=== PATIENT | female | born 1970 | race American Indian/Alaskan Native ===

== ENCOUNTER 2018-08-27 14:03 | Emergency (ER) | payer BC, SELFPAY ==
[2018-08-27 14:15] VITALS: BP 133/59; PULSE 79; RESP 16; TEMP 36.7; O2SAT 100
--- NOTE | 2018-08-27 14:54 | ED_ITS ---
HPI - Extremity Problem <Fatou Moore PA-C - Last Filed: 08/27/18 16:05> General Chief complaint: Extremity Problem,Nontraumatic Stated complaint: BILATERAL KNEE PAIN Time Seen by Provider: 08/27/18 14:26 Source: patient Mode of arrival: ambulatory Limitations: no limitations History of Present Illness HPI Narrative: this 47-year-old female comes in due to history of chronic bilateral knee pain, worse on the left. She states this is been going on for 3 months or more, gradually worsening. She is on her feet all day for work and thinks that worsens her pain. She states she does not have any pain at rest, worsens after being on her feet, moving from sit to stand her having to bend her knees a lot. She states her heels are somewhat sore also but no pain in her ankles, no pain in other joints, no swelling noted, or other new symptoms such as fever. She states that sometime ago she was told she has arthritis but does not know in which joints. She has been using topical rubs and taking some [id number] ibuprofen off and on, but states she does not take regularly because it can cause stomach upset. She denies any specific trauma or injury aside from being on her feet a lot. She states that she was not able to get in with her PCP until middle of the month so was told to come here. Related Data Previous Rx's Medication Instructions Recorded azithromycin 1 gm PO QDAY 1 Days #0 pck 06/01/17 tramadol 50 mg PO Q6HP PRN #20 tab 06/01/17 meloxicam 15 mg PO DAILY #30 tab 08/27/18 Allergies Allergy/AdvReac Type Severity Reaction Status Date / Time Iodine and Iodide Containing Allergy Verified 08/27/18 14:15 Produc Review of Systems <Fatou Moore PA-C - Last Filed: 08/27/18 16:05> Review of Systems All systems reviewed & are unremarkable except as noted in HPI and below Exam <Fatou Moore PA-C - Last Filed: 08/27/18 16:05> Narrative Exam Narrative: GENERAL APPEARANCE: Patient sitting comfortably, in no distress. LUNGS: Clear to auscultation bilaterally. HEART: Rate and rhythm regular without murmur, normal S1 and S2, no S3 or S4. MUSCULOSKELETAL: Bilateral knees there is no effusion. She has mild bilateral joint line tenderness, a little bit more on the left. She also has tenderness medial to the patella on the left, none on the right. Full range of motion of both knees, bears full weight. No tenderness or effusion over the ankles or feet, full range of motion NEUROVASCULAR: Sensation over the lower extremities is grossly intact, feet are warm and pink with pulses intact Initial Vital Signs Initial Vital Signs: Vital Signs Temperature 98.0 F 08/27/18 14:15 Pulse Rate 79 08/27/18 14:15 Respiratory Rate 16 08/27/18 14:15 Blood Pressure 133/59 L 08/27/18 14:15 Pulse Oximetry 100 08/27/18 14:15 <Vonda Mendez DO - Last Filed: 08/27/18 16:16> Initial Vital Signs Initial Vital Signs: Vital Signs Temperature 98.0 F 08/27/18 14:15 Pulse Rate 79 08/27/18 14:15 Respiratory Rate 16 08/27/18 14:15 Blood Pressure 133/59 L 08/27/18 14:15 Pulse Oximetry 100 08/27/18 14:15 Course <Fatou Moore PA-C - Last Filed: 08/27/18 16:05> Vital Signs - 8 hr 08/27/18 14:15 Temperature 98.0 F Pulse Rate 79 Respiratory Rate 16 Blood Pressure 133/59 L Pulse Oximetry 100 <Vonda Mendez DO - Last Filed: 08/27/18 16:16> Vital Signs - 8 hr 08/27/18 14:15 Temperature 98.0 F Pulse Rate 79 Respiratory Rate 16 Blood Pressure 133/59 L Pulse Oximetry 100 Discharge Plan Departure Patient Disposition: Home Clinical Impression: Bilateral chronic knee pain Discharge Date/Time: 08/27/18 15:03 Interventions: ED Discharge Assessment Last Done: 08/27/18 15:00 Instructions: DI for Knee Pain Activity Restrictions/Additional Instructions: Please call your primary care office and let them know that you were seen in the emergency room so that you can try to arrange appointment prior to the planned appointment you have in 2 weeks. please try the once daily anti- inflammatory meloxicam /pain reliever that I have prescribed for you to see if this helps you with less stomach upset than ibuprofen. I have prescribed a lower dose and you can increase this to 2 tablets if needed. Please add over- the-counter long-acting (8 hr) Tylenol, 650 mg per tablet if you need to. You can also where topical patches such as lidocaine all day while you are at work. It would also be helpful to try icing your knees on your work breaks and after work. Please talk with your new PCP about whether you need x-rays and whether a physical therapy referral may be helpful since you are on your feet all day for work Prescriptions: New meloxicam 7.5 mg tablet 15 mg PO DAILY Qty: 30 RF: 0 No Action tramadol 50 MG tablet 50 mg PO Q6HP PRNQty: 20 RF: 0 azithromycin 1 GM packet 1 gm PO QDAY 1 Days Qty: 0 RF: 0 <Vonda Mendez DO - Last Filed: 08/27/18 16:16> Cosign ED Attending Cosignature Attestation: I was immediately available in the department for consultation. This documentation has been reviewed and I agree with assessment and plan. Supervised by Vonda Mendez DO
== END 2018-08-27 15:03 | disposition home or self-care (01) ==
PROVIDERS: Emergency Provider Internal Medicine
DX: M25.562 Pain in left knee (principal); M25.561 Pain in right knee; G89.29 Other chronic pain
CPT/HCPCS: 99282

== ENCOUNTER 2018-12-09 13:00 | Outpatient (RCR) | payer BC, SELFPAY ==
--- NOTE | 2018-10-07 15:50 | PT.OIE ---
Current Diagnoses Pain in right knee (10/07/18) Pain in left knee (10/07/18) Past Medical History (Last Updated 08/27/18 @ 16:02 by Fatou Moore PA-C) Chronic knee pain (Chronic) Ovarian cyst (Resolved) Past Surgical History (Last Updated 08/27/18 @ 16:02 by Fatou Moore PA-C) History of removal of ovarian cyst (Resolved) Provider Visit Care Team Role Provider Type Kalee Wright MD Attending Provider Non-Staff Primary Care Provider Specialty: Medical Address: [address] [place] [address], [phone] Email: Physical Therapy Initial Evaluation PT-OP-A Visit Information Start: 10/07/18 14:43 Freq: Status: Active Protocol: Document 10/07/18 09:00 AMB (Rec: 10/07/18 15:27 AMB [email or web address]) Out-Patient Physical Therapy Visit Information Visit Information Visit Type Initial Evaluation Visit Start Time 09:00 Visit Stop Time 09:45 Total Visit Minutes 45 Visit Number 1 PT-OP-B Current Condition Start: 10/07/18 14:43 Freq: Status: Active Protocol: Document 10/07/18 09:00 AMB (Rec: 10/07/18 15:27 AMB [email or web address]) Current Condition History of Current Condition Onset Date 6 months Current Complaints L>R knee pain History of Current Condition The patient reports knee pain that has been increasing since walking all day for work at [employer]. It is medial, posterior, and superior to the patella. She reports clicking, but not locking. Prior Functional Status Baseline Function- ADL's Independent Baseline Function- Mobility Independent Baseline Function- Other Pt was previously jogging outside and went to the gym when she lived in [place] a year ago, has not returned to that activity since moving. 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 PT-OP-C Subjective Start: 10/07/18 14:43 Freq: Status: Active Protocol: Document 10/07/18 09:00 AMB (Rec: 10/07/18 15:27 AMB [email or web address]) Patient Questionnaires Lower Extremity Functional Scale LEFS Score 52 LEFS Impairment 20 to 39% Impaired (Score 48- 62) OP-PT Pain Assessment Pain Assessment Grid Paper Pain Assessment Grid Completed Yes PT-OP-J Posture/Palpation/Skin Start: 10/07/18 14:43 Freq: Status: Active Protocol: Document 10/07/18 09:00 AMB (Rec: 10/07/18 15:37 AMB [email or web address]) Posture Evaluation Comments Posture Comments High arches and hyper lordosis bilaterally Palpation Assessment Location One Palpation Location Knees Palpation Findings Tenderness Palpation Details Tenderness at joint line medially and laterally, tenderness at IT band. No pain with patellar mobilization PT-OP-K Range of Motion Start: 10/07/18 14:43 Freq: Status: Active Protocol: Document 10/07/18 09:00 AMB (Rec: 10/07/18 15:37 AMB [email or web address]) Knee Goniometric Range of Motion Knee Measured in Degrees Right Knee ROM WFL Yes Left Knee ROM WFL Yes PT-OP-L Special Tests Start: 10/07/18 14:43 Freq: Status: Active Protocol: Document 10/07/18 09:00 AMB (Rec: 10/07/18 15:37 AMB [email or web address]) Special Tests Knee Special Tests Beto Test Test Results negative bilat PT-OP-M Strength Start: 10/07/18 14:43 Freq: Status: Active Protocol: Document 10/07/18 09:00 AMB (Rec: 10/07/18 15:37 AMB [email or web address]) Hip Strength Hip Manual Muscle Testing Right Flexion (L2) 4+ Good+ Extension (S1) 4+ Good+ Abduction 4+ Good+ Adduction 4+ Good+ Left Flexion (L2) 4 Good Extension (S1) 4 Good Abduction 4+ Good+ Adduction 4+ Good+ Knee Strength Knee Manual Muscle Testing Right Flexion (S2) 4+ Good+ Extension (L3) 4+ Good+ Left Flexion (S2) 4 Good Extension (L3) 4 Good PT-OP-Q Treatments Start: 10/07/18 14:43 Freq: Status: Active Protocol: Document 10/07/18 09:00 AMB (Rec: 10/07/18 15:50 AMB [email or web address]) Therapeutic Exercises Supine Exercises 1 Supine Exercise Name hamstring IT band stretch Reps/Minutes 30x2 Sidelying Exercises 1 Sidelying Exercise Name hip abd AROM Reps/Minutes 2x10 Standing Exercises 2 Standing Exercise Name squat Reps/Minutes 1x10 1 Standing Exercise Name wall squat Reps/Minutes 10x3 PT-OP-T Assessment and Plan Start: 10/07/18 14:43 Freq: Status: Active Protocol: Document 10/07/18 09:00 AMB (Rec: 10/07/18 15:50 AMB [email or web address]) Physical Therapy Assessment Rehab Potential Rehabilitation Potential Good Evaluation Complexity Number of Personal Factors/Comorbidities 1-2 Number of Body Systems Impaired 4 or More Clinical Presentation at Evaluation Evolving Impairments Impairments Functional Mobility Pain Posture ROM Soft Tissue Mobility Strength Goals Two Impairment Gait Short Term Goal (STG) Akiko will walk and stand at work for 4 hours without knee pain. STG Duration 4 weeks Automatic Machine Attendant Goal (LTG) Akiko will ascend and descend 2 flights of stairs without knee pain. LTG Duration 8 weeks One Impairment Strength Short Term Goal (STG) Akiko will improve her knee and hip strength to 4+/5 in all planes. STG Duration 4 weeks Automatic Machine Attendant Goal (LTG) Carmen will improve her bilateral lower extremity strength so that she can perform a full squat without an increase in knee pain. LTG Duration 8 weeks Assessment Summary Assessment The patient presents to PT with bilateral knee pain worse on the left. She presents with poor hip strength, tightness in her hamstrings and lateral hip musculature and non-supportive shoes for her high arches. She had signs and symptoms associated with patellofemoral syndrome. She will benefit from physical therapy to help her stretch and strengthen appropriately to help her return to her previously active lifestyle that included running. Physical Therapy Plan Frequency and Duration Frequency of Treatment 2x/Week Duration of Treatment 8 weeks Plan of Care Start Date 10/07/18 Plan of Care End Date 12/02/18 Therapeutic Interventions Therapeutic Interventions Aquatic Therapy Gait Training Home Exercise Program Joint Mobilizations Manual Therapy Neuromuscular Re-education Self-Care/Home Management Soft Tissue Mobilization Taping Therapeutic Activities Therapeutic Exercises Modalities Cold Pack/Ice Massage Electric Stimulation Hot Packs Ultrasound Next Visit Focus/Plan Next Note Type Treatment Note Next Visit Plan Hip abduction and VMO strengthening, IT band stretching. Progress squat form. Taping as needed.
--- NOTE | 2018-10-07 15:50 | PT.OPPOC ---
Current Diagnoses Pain in right knee (10/07/18) Pain in left knee (10/07/18) Provider Visit Care Team Role Provider Type Kalee Wright MD Attending Provider Non-Staff Primary Care Provider Specialty: Medical Address: [address] [place] [address], [phone] Email: Plan Of Care PT-OP-T Assessment and Plan Start: 10/07/18 14:43 Freq: Status: Active Protocol: Document 10/07/18 09:00 AMB (Rec: 10/07/18 15:50 AMB [email or web address]) Physical Therapy Assessment Rehab Potential Rehabilitation Potential Good Evaluation Complexity Number of Personal Factors/Comorbidities 1-2 Number of Body Systems Impaired 4 or More Clinical Presentation at Evaluation Evolving Impairments Impairments Functional Mobility Pain Posture ROM Soft Tissue Mobility Strength Goals Two Impairment Gait Short Term Goal (STG) Akiko will walk and stand at work for 4 hours without knee pain. STG Duration 4 weeks Bit Sharpener Operator Goal (LTG) Akiko will ascend and descend 2 flights of stairs without knee pain. LTG Duration 8 weeks One Impairment Strength Short Term Goal (STG) Akiko will improve her knee and hip strength to 4+/5 in all planes. STG Duration 4 weeks Longterm Goal (LTG) Carmen will improve her bilateral lower extremity strength so that she can perform a full squat without an increase in knee pain. LTG Duration 8 weeks Assessment Summary Assessment The patient presents to PT with bilateral knee pain worse on the left. She presents with poor hip strength, tightness in her hamstrings and lateral hip musculature and non-supportive shoes for her high arches. She had signs and symptoms associated with patellofemoral syndrome. She will benefit from physical therapy to help her stretch and strengthen appropriately to help her return to her previously active lifestyle that included running. Physical Therapy Plan Frequency and Duration Frequency of Treatment 2x/Week Duration of Treatment 8 weeks Plan of Care Start Date 10/07/18 Plan of Care End Date 12/02/18 Therapeutic Interventions Therapeutic Interventions Aquatic Therapy Gait Training Home Exercise Program Joint Mobilizations Manual Therapy Neuromuscular Re-education Self-Care/Home Management Soft Tissue Mobilization Taping Therapeutic Activities Therapeutic Exercises Modalities Cold Pack/Ice Massage Electric Stimulation Hot Packs Ultrasound Next Visit Focus/Plan Next Note Type Treatment Note Next Visit Plan Hip abduction and VMO strengthening, IT band stretching. Progress squat form. Taping as needed. Plan of Care Dates Plan of Care Start Date 10/07/18 Plan of Care End Date 12/02/18 Please Sign and Return: I have reviewed this Plan of Care and certify that the skilled therapy services above are required to meet the patient?s needs. Physician Signature Date Printed Name and Credentials Clinical Instructor Signature Printed Name and Credentials
--- NOTE | 2018-10-19 09:59 | PT.OTN ---
Current Diagnoses Pain in right knee (10/19/18) Pain in left knee (10/19/18) Physical Therapy Treatment Note PT-OP-A Visit Information Start: 10/07/18 14:43 Freq: Status: Active Protocol: Document 10/19/18 09:00 AMB (Rec: 10/19/18 09:09 AMB [id number]) Out-Patient Physical Therapy Visit Information Visit Information Visit Type Treatment Note Visit Start Time 09:00 Visit Stop Time 09:45 Total Visit Minutes 45 Visit Number 2 PT-OP-B Current Condition Start: 10/07/18 14:43 Freq: Status: Active Protocol: Document 10/07/18 09:00 AMB (Rec: 10/07/18 15:27 AMB [email or web address]) Current Condition History of Current Condition Onset Date 6 months Current Complaints L>R knee pain History of Current Condition The patient reports knee pain that has been increasing since walking all day for work at [employer]. It is medial, posterior, and superior to the patella. She reports clicking, but not locking. Prior Functional Status Baseline Function- ADL's Independent Baseline Function- Mobility Independent Baseline Function- Other Pt was previously jogging outside and went to the gym when she lived in [place] a year ago, has not returned to that activity since moving. 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 PT-OP-C Subjective Start: 10/07/18 14:43 Freq: Status: Active Protocol: Document 10/19/18 09:00 AMB (Rec: 10/19/18 09:09 AMB [id number]) OP-PT Subjective Patient Comments Patient Comments The patient notes pain behind the knees over the last week. PT-OP-J Posture/Palpation/Skin Start: 10/07/18 14:43 Freq: Status: Active Protocol: Document 10/07/18 09:00 AMB (Rec: 10/07/18 15:37 AMB [email or web address]) Posture Evaluation Comments Posture Comments High arches and hyper lordosis bilaterally Palpation Assessment Location One Palpation Location Knees Palpation Findings Tenderness Palpation Details Tenderness at joint line medially and laterally, tenderness at IT band. No pain with patellar mobilization PT-OP-K Range of Motion Start: 10/07/18 14:43 Freq: Status: Active Protocol: Document 10/07/18 09:00 AMB (Rec: 10/07/18 15:37 AMB [email or web address]) Knee Goniometric Range of Motion Knee Measured in Degrees Right Knee ROM WFL Yes Left Knee ROM WFL Yes PT-OP-L Special Tests Start: 10/07/18 14:43 Freq: Status: Active Protocol: Document 10/07/18 09:00 AMB (Rec: 10/07/18 15:37 AMB [email or web address]) Special Tests Knee Special Tests Beto Test Test Results negative bilat PT-OP-M Strength Start: 10/07/18 14:43 Freq: Status: Active Protocol: Document 10/07/18 09:00 AMB (Rec: 10/07/18 15:37 AMB [email or web address]) Hip Strength Hip Manual Muscle Testing Right Flexion (L2) 4+ Good+ Extension (S1) 4+ Good+ Abduction 4+ Good+ Adduction 4+ Good+ Left Flexion (L2) 4 Good Extension (S1) 4 Good Abduction 4+ Good+ Adduction 4+ Good+ Knee Strength Knee Manual Muscle Testing Right Flexion (S2) 4+ Good+ Extension (L3) 4+ Good+ Left Flexion (S2) 4 Good Extension (L3) 4 Good PT-OP-Q Treatments Start: 10/07/18 14:43 Freq: Status: Active Protocol: Document 10/19/18 09:00 AMB (Rec: 10/19/18 09:58 AMB [email or web address]) Cardio Equipment Bicycle (Upright) Duration (Minutes) 7 Resistance 4 Seat Position 2 Gym Equipment Shuttle Recovery Bilateral Squats Details ball between knees Resistance 37 Shuttle Recovery Platform Stable Reps/Time 4 min Therapeutic Exercises Supine Exercises 2 Supine Exercise Name SLR Reps/Minutes 2x10 1 Supine Exercise Name hamstring IT band stretch Reps/Minutes 30x2 Sidelying Exercises 1 Sidelying Exercise Name hip abd AROM Reps/Minutes 2x10 Standing Exercises 4 Standing Exercise Name hamstring stretch Reps/Minutes 30x2 Comments on stair 3 Standing Exercise Name calf stretch Reps/Minutes 30x2 Comments GERARDO Manual Therapy Treatment Soft Tissue Mobilization 1 Body Location posterior knee Mobilization Type Myofascial Release Strumming Intensity/Depth Moderate Joint Mobilizations 1 Joint patellofemoral Direction all planes Grade III Body Position Supine PT-OP-R Modalities Start: 10/07/18 14:43 Freq: Status: Active Protocol: Document 10/19/18 09:00 AMB (Rec: 10/19/18 09:58 AMB [email or web address]) Electric Stimulation Electric Stimulation Pre-Modulated Body Location Bilateral knees Duration (Minutes) 10 PT-OP-T Assessment and Plan Start: 10/07/18 14:43 Freq: Status: Active Protocol: Document 10/19/18 09:00 AMB (Rec: 10/19/18 09:58 AMB [email or web address]) Physical Therapy Assessment Assessment Summary Assessment Educated on the difference between muscles soreness and joint pain. Encouraged hip abd and VMO strengthening. Physical Therapy Plan Next Visit Focus/Plan Next Note Type Treatment Note Next Visit Plan Hip abduction and VMO strengthening, IT band stretching. Progress squat form. Taping as needed.
--- NOTE | 2018-10-21 09:47 | PT.OTN ---
Current Diagnoses Pain in right knee (10/21/18) Pain in left knee (10/21/18) Physical Therapy Treatment Note PT-OP-A Visit Information Start: 10/07/18 14:43 Freq: Status: Active Protocol: Document 10/21/18 09:00 AMB (Rec: 10/21/18 09:12 AMB [id number]) Out-Patient Physical Therapy Visit Information Visit Information Visit Type Treatment Note Visit Start Time 09:00 Visit Stop Time 09:45 Total Visit Minutes 45 Visit Number 3 PT-OP-B Current Condition Start: 10/07/18 14:43 Freq: Status: Active Protocol: Document 10/07/18 09:00 AMB (Rec: 10/07/18 15:27 AMB [email or web address]) Current Condition History of Current Condition Onset Date 6 months Current Complaints L>R knee pain History of Current Condition The patient reports knee pain that has been increasing since walking all day for work at [employer]. It is medial, posterior, and superior to the patella. She reports clicking, but not locking. Prior Functional Status Baseline Function- ADL's Independent Baseline Function- Mobility Independent Baseline Function- Other Pt was previously jogging outside and went to the gym when she lived in [place] a year ago, has not returned to that activity since moving. 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 PT-OP-C Subjective Start: 10/07/18 14:43 Freq: Status: Active Protocol: Document 10/21/18 09:00 AMB (Rec: 10/21/18 09:12 AMB [id number]) OP-PT Subjective Patient Comments Patient Comments The patient reports soreness above knee cap, worst on the L . Soreness after last visit in her hips. PT-OP-J Posture/Palpation/Skin Start: 10/07/18 14:43 Freq: Status: Active Protocol: Document 10/07/18 09:00 AMB (Rec: 10/07/18 15:37 AMB [email or web address]) Posture Evaluation Comments Posture Comments High arches and hyper lordosis bilaterally Palpation Assessment Location One Palpation Location Knees Palpation Findings Tenderness Palpation Details Tenderness at joint line medially and laterally, tenderness at IT band. No pain with patellar mobilization PT-OP-K Range of Motion Start: 10/07/18 14:43 Freq: Status: Active Protocol: Document 10/07/18 09:00 AMB (Rec: 10/07/18 15:37 AMB [email or web address]) Knee Goniometric Range of Motion Knee Measured in Degrees Right Knee ROM WFL Yes Left Knee ROM WFL Yes PT-OP-L Special Tests Start: 10/07/18 14:43 Freq: Status: Active Protocol: Document 10/07/18 09:00 AMB (Rec: 10/07/18 15:37 AMB [email or web address]) Special Tests Knee Special Tests Beto Test Test Results negative bilat PT-OP-M Strength Start: 10/07/18 14:43 Freq: Status: Active Protocol: Document 10/07/18 09:00 AMB (Rec: 10/07/18 15:37 AMB [email or web address]) Hip Strength Hip Manual Muscle Testing Right Flexion (L2) 4+ Good+ Extension (S1) 4+ Good+ Abduction 4+ Good+ Adduction 4+ Good+ Left Flexion (L2) 4 Good Extension (S1) 4 Good Abduction 4+ Good+ Adduction 4+ Good+ Knee Strength Knee Manual Muscle Testing Right Flexion (S2) 4+ Good+ Extension (L3) 4+ Good+ Left Flexion (S2) 4 Good Extension (L3) 4 Good PT-OP-Q Treatments Start: 10/07/18 14:43 Freq: Status: Active Protocol: Document 10/21/18 09:00 AMB (Rec: 10/21/18 09:44 AMB [id number]) Cardio Equipment Bicycle (Upright) Duration (Minutes) 7 Resistance 4 Seat Position 2 Therapeutic Exercises Supine Exercises 2 Supine Exercise Name SLR Reps/Minutes 2x10 1 Supine Exercise Name hamstring IT band stretch Reps/Minutes 30x2 Sidelying Exercises 1 Sidelying Exercise Name hip abd AROM Reps/Minutes 2x10 Standing Exercises 4 Standing Exercise Name hamstring stretch/ IT band stretch Reps/Minutes 30x2 Comments on stair 3 Standing Exercise Name calf stretch Reps/Minutes 30x2 Comments GERARDO 1 Standing Exercise Name wall squat Reps/Minutes 10x3 Manual Therapy Treatment Soft Tissue Mobilization 2 Body Location IT band Mobilization Type Rolling Comments bilat PT-OP-R Modalities Start: 10/07/18 14:43 Freq: Status: Active Protocol: Document 10/21/18 09:00 AMB (Rec: 10/21/18 09:45 AMB [id number]) Electric Stimulation Electric Stimulation Pre-Modulated Body Location Bilateral knees Duration (Minutes) 10 Comments with ice pack PT-OP-T Assessment and Plan Start: 10/07/18 14:43 Freq: Status: Active Protocol: Document 10/21/18 09:00 AMB (Rec: 10/21/18 09:46 AMB [id number]) Physical Therapy Assessment Assessment Summary Assessment Pt with soreness after last visit, and some anxiety over L superior patellar pain. Encouraged pt to continue hip strengthening icing as needed. Physical Therapy Plan Next Visit Focus/Plan Next Note Type Treatment Note Next Visit Plan Hip abduction and VMO strengthening, IT band stretching. Progress squat form. Taping as needed.
--- NOTE | 2018-10-25 12:56 | PT.OTN ---
Current Diagnoses Pain in right knee (10/25/18) Pain in left knee (10/25/18) Physical Therapy Treatment Note PT-OP-A Visit Information Start: 10/07/18 14:43 Freq: Status: Active Protocol: Document 10/25/18 09:00 AMB (Rec: 10/25/18 09:08 AMB [id number]) Out-Patient Physical Therapy Visit Information Visit Information Visit Type Treatment Note Visit Start Time 09:00 Visit Stop Time 09:45 Total Visit Minutes 45 Visit Number 4 PT-OP-B Current Condition Start: 10/07/18 14:43 Freq: Status: Active Protocol: Document 10/07/18 09:00 AMB (Rec: 10/07/18 15:27 AMB [email or web address]) Current Condition History of Current Condition Onset Date 6 months Current Complaints L>R knee pain History of Current Condition The patient reports knee pain that has been increasing since walking all day for work at [employer]. It is medial, posterior, and superior to the patella. She reports clicking, but not locking. Prior Functional Status Baseline Function- ADL's Independent Baseline Function- Mobility Independent Baseline Function- Other Pt was previously jogging outside and went to the gym when she lived in [place] a year ago, has not returned to that activity since moving. 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 PT-OP-C Subjective Start: 10/07/18 14:43 Freq: Status: Active Protocol: Document 10/25/18 09:00 AMB (Rec: 10/25/18 09:08 AMB [id number]) OP-PT Subjective Patient Comments Patient Comments Pt reports R knee swelling over the weekend that was very painful, mostly anterior pain . PT-OP-J Posture/Palpation/Skin Start: 10/07/18 14:43 Freq: Status: Active Protocol: Document 10/07/18 09:00 AMB (Rec: 10/07/18 15:37 AMB [email or web address]) Posture Evaluation Comments Posture Comments High arches and hyper lordosis bilaterally Palpation Assessment Location One Palpation Location Knees Palpation Findings Tenderness Palpation Details Tenderness at joint line medially and laterally, tenderness at IT band. No pain with patellar mobilization PT-OP-K Range of Motion Start: 10/07/18 14:43 Freq: Status: Active Protocol: Document 10/07/18 09:00 AMB (Rec: 10/07/18 15:37 AMB [email or web address]) Knee Goniometric Range of Motion Knee Measured in Degrees Right Knee ROM WFL Yes Left Knee ROM WFL Yes PT-OP-L Special Tests Start: 10/07/18 14:43 Freq: Status: Active Protocol: Document 10/07/18 09:00 AMB (Rec: 10/07/18 15:37 AMB [email or web address]) Special Tests Knee Special Tests Beto Test Test Results negative bilat PT-OP-M Strength Start: 10/07/18 14:43 Freq: Status: Active Protocol: Document 10/07/18 09:00 AMB (Rec: 10/07/18 15:37 AMB [email or web address]) Hip Strength Hip Manual Muscle Testing Right Flexion (L2) 4+ Good+ Extension (S1) 4+ Good+ Abduction 4+ Good+ Adduction 4+ Good+ Left Flexion (L2) 4 Good Extension (S1) 4 Good Abduction 4+ Good+ Adduction 4+ Good+ Knee Strength Knee Manual Muscle Testing Right Flexion (S2) 4+ Good+ Extension (L3) 4+ Good+ Left Flexion (S2) 4 Good Extension (L3) 4 Good PT-OP-Q Treatments Start: 10/07/18 14:43 Freq: Status: Active Protocol: Document 10/25/18 09:00 AMB (Rec: 10/25/18 10:16 AMB [id number]) Cardio Equipment Recumbent Bicycle Duration (Minutes) 6 Resistance 4 Seat Position 4 Therapeutic Exercises Supine Exercises 3 Supine Exercise Name hip flexor stretch Reps/Minutes 30x2 2 Supine Exercise Name SLR Reps/Minutes 2x10 1 Supine Exercise Name hamstring IT band stretch Reps/Minutes 30x2 Manual Therapy Treatment Soft Tissue Mobilization 2 Body Location IT band Mobilization Type Rolling Comments bilat Joint Mobilizations 1 Joint patellofemoral Direction all planes Grade III Body Position Supine Taping 1 Body Location bilat knees Type of Tape Kinesio Tape Comments 3 Ys PT-OP-R Modalities Start: 10/07/18 14:43 Freq: Status: Active Protocol: Document 10/25/18 09:00 AMB (Rec: 10/25/18 12:49 AMB [email or web address]) Hot Pack/Cold Pack Treatment Cold Pack Location B knees/hips Patient Position Hooklying Treatment Duration (minutes) 10 PT-OP-T Assessment and Plan Start: 10/07/18 14:43 Freq: Status: Active Protocol: Document 10/25/18 09:00 AMB (Rec: 10/25/18 12:49 [facility] [email or web address]) Physical Therapy Assessment Assessment Summary Assessment Pt with more R sided sx. Presents with anxiety regarding pain, tried to reassure that bodies can heal, and that since her hips and knees are very weak, strengthening should improve her pain significantly. Physical Therapy Plan Next Visit Focus/Plan Next Note Type Treatment Note Next Visit Plan Hip abduction and VMO strengthening, IT band stretching. Progress squat form. Taping as needed.
--- NOTE | 2018-10-28 10:47 | PT.OTN ---
Current Diagnoses Pain in right knee (10/28/18) Pain in left knee (10/28/18) Physical Therapy Treatment Note PT-OP-A Visit Information Start: 10/07/18 14:43 Freq: Status: Active Protocol: Document 10/28/18 09:00 AMB (Rec: 10/28/18 09:37 AMB [id number]) Out-Patient Physical Therapy Visit Information Visit Information Visit Type Treatment Note Visit Start Time 09:00 Visit Stop Time 09:45 Total Visit Minutes 45 Visit Number 5 PT-OP-B Current Condition Start: 10/07/18 14:43 Freq: Status: Active Protocol: Document 10/07/18 09:00 AMB (Rec: 10/07/18 15:27 AMB [email or web address]) Current Condition History of Current Condition Onset Date 6 months Current Complaints L>R knee pain History of Current Condition The patient reports knee pain that has been increasing since walking all day for work at [employer] [facility] [facility] [employer]. It is medial, posterior, and superior to the patella. She reports clicking, but not locking. Prior Functional Status Baseline Function- ADL's Independent Baseline Function- Mobility Independent Baseline Function- Other Pt was previously jogging outside and went to the gym when she lived in [place] a year ago, has not returned to that activity since moving. 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 PT-OP-C Subjective Start: 10/07/18 14:43 Freq: Status: Active Protocol: Document 10/28/18 09:00 AMB (Rec: 10/28/18 10:47 AMB [email or web address]) OP-PT Subjective Patient Comments Patient Comments Pt notes her R knee pain is better, but her L knee pain continues. Mostly just superior to her patella. She continues to notice hip soreness with her exercises. PT-OP-J Posture/Palpation/Skin Start: 10/07/18 14:43 Freq: Status: Active Protocol: Document 10/07/18 09:00 AMB (Rec: 10/07/18 15:37 AMB [email or web address]) Posture Evaluation Comments Posture Comments High arches and hyper lordosis bilaterally Palpation Assessment Location One Palpation Location Knees Palpation Findings Tenderness Palpation Details Tenderness at joint line medially and laterally, tenderness at IT band. No pain with patellar mobilization PT-OP-K Range of Motion Start: 10/07/18 14:43 Freq: Status: Active Protocol: Document 10/07/18 09:00 AMB (Rec: 10/07/18 15:37 AMB [email or web address]) Knee Goniometric Range of Motion Knee Measured in Degrees Right Knee ROM WFL Yes Left Knee ROM WFL Yes PT-OP-L Special Tests Start: 10/07/18 14:43 Freq: Status: Active Protocol: Document 10/07/18 09:00 AMB (Rec: 10/07/18 15:37 AMB [email or web address]) Special Tests Knee Special Tests Beto Test Test Results negative bilat PT-OP-M Strength Start: 10/07/18 14:43 Freq: Status: Active Protocol: Document 10/07/18 09:00 AMB (Rec: 10/07/18 15:37 AMB [email or web address]) Hip Strength Hip Manual Muscle Testing Right Flexion (L2) 4+ Good+ Extension (S1) 4+ Good+ Abduction 4+ Good+ Adduction 4+ Good+ Left Flexion (L2) 4 Good Extension (S1) 4 Good Abduction 4+ Good+ Adduction 4+ Good+ Knee Strength Knee Manual Muscle Testing Right Flexion (S2) 4+ Good+ Extension (L3) 4+ Good+ Left Flexion (S2) 4 Good Extension (L3) 4 Good PT-OP-Q Treatments Start: 10/07/18 14:43 Freq: Status: Active Protocol: Document 10/28/18 09:00 AMB (Rec: 10/28/18 10:47 AMB [email or web address]) Cardio Equipment Bicycle (Upright) Duration (Minutes) 5 Resistance 4 Seat Position 2 Gym Equipment Shuttle Recovery Bilateral Squats Details ball between knees Resistance 50 Shuttle Recovery Platform Stable Reps/Time 4 min Therapeutic Exercises Supine Exercises 2 Supine Exercise Name SLR Reps/Minutes 2x10 1 Supine Exercise Name hamstring IT band stretch Reps/Minutes 30x2 Sidelying Exercises 1 Sidelying Exercise Name hip abd AROM Reps/Minutes 2x10 Standing Exercises 4 Standing Exercise Name hamstring stretch/ IT band stretch Reps/Minutes 30x2 Comments on stair Manual Therapy Treatment Soft Tissue Mobilization 2 Body Location IT band Mobilization Type Rolling Comments bilat Joint Mobilizations 1 Joint patellofemoral Direction all planes Grade III Body Position Supine Taping 1 Body Location L knee Type of Tape Kinesio Tape Comments 3 Ys PT-OP-R Modalities Start: 10/07/18 14:43 Freq: Status: Active Protocol: Document 10/25/18 09:00 AMB (Rec: 10/25/18 12:49 AMB [email or web address]) Hot Pack/Cold Pack Treatment Cold Pack Location B knees/hips Patient Position Hooklying Treatment Duration (minutes) 10 PT-OP-T Assessment and Plan Start: 10/07/18 14:43 Freq: Status: Active Protocol: Document 10/28/18 09:00 AMB (Rec: 10/28/18 10:47 AMB [email or web address]) Physical Therapy Assessment Assessment Summary Assessment Pt continues to note L>R knee pain, but tolerance to exercise continues to be poor. Physical Therapy Plan Next Visit Focus/Plan Next Note Type Treatment Note Next Visit Plan Hip abduction and VMO strengthening, IT band stretching. Progress squat form. Taping as needed.
--- NOTE | 2018-11-04 11:57 | PT.OTN ---
Current Diagnoses Pain in right knee (11/04/18) Pain in left knee (11/04/18) Physical Therapy Treatment Note PT-OP-A Visit Information Start: 10/07/18 14:43 Freq: Status: Active Protocol: Document 11/04/18 09:00 AMB (Rec: 11/04/18 09:17 AMB [id number]) Out-Patient Physical Therapy Visit Information Visit Information Visit Type Treatment Note Visit Start Time 09:00 Visit Stop Time 09:45 Total Visit Minutes 45 Visit Number 6 PT-OP-B Current Condition Start: 10/07/18 14:43 Freq: Status: Active Protocol: Document 10/07/18 09:00 AMB (Rec: 10/07/18 15:27 AMB [email or web address]) Current Condition History of Current Condition Onset Date 6 months Current Complaints L>R knee pain History of Current Condition The patient reports knee pain that has been increasing since walking all day for work at [employer]. It is medial, posterior, and superior to the patella. She reports clicking, but not locking. Prior Functional Status Baseline Function- ADL's Independent Baseline Function- Mobility Independent Baseline Function- Other Pt was previously jogging outside and went to the gym when she lived in [place] a year ago, has not returned to that activity since moving. 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 PT-OP-C Subjective Start: 10/07/18 14:43 Freq: Status: Active Protocol: Document 11/04/18 09:00 AMB (Rec: 11/04/18 09:17 AMB [id number]) OP-PT Subjective Patient Comments Patient Comments L knee pain continues when up on feet. PT-OP-J Posture/Palpation/Skin Start: 10/07/18 14:43 Freq: Status: Active Protocol: Document 10/07/18 09:00 AMB (Rec: 10/07/18 15:37 AMB [email or web address]) Posture Evaluation Comments Posture Comments High arches and hyper lordosis bilaterally Palpation Assessment Location One Palpation Location Knees Palpation Findings Tenderness Palpation Details Tenderness at joint line medially and laterally, tenderness at IT band. No pain with patellar mobilization PT-OP-K Range of Motion Start: 10/07/18 14:43 Freq: Status: Active Protocol: Document 10/07/18 09:00 AMB (Rec: 10/07/18 15:37 AMB [email or web address]) Knee Goniometric Range of Motion Knee Measured in Degrees Right Knee ROM WFL Yes Left Knee ROM WFL Yes PT-OP-L Special Tests Start: 10/07/18 14:43 Freq: Status: Active Protocol: Document 10/07/18 09:00 AMB (Rec: 10/07/18 15:37 AMB [email or web address]) Special Tests Knee Special Tests Beto Test Test Results negative bilat PT-OP-M Strength Start: 10/07/18 14:43 Freq: Status: Active Protocol: Document 10/07/18 09:00 AMB (Rec: 10/07/18 15:37 AMB [email or web address]) Hip Strength Hip Manual Muscle Testing Right Flexion (L2) 4+ Good+ Extension (S1) 4+ Good+ Abduction 4+ Good+ Adduction 4+ Good+ Left Flexion (L2) 4 Good Extension (S1) 4 Good Abduction 4+ Good+ Adduction 4+ Good+ Knee Strength Knee Manual Muscle Testing Right Flexion (S2) 4+ Good+ Extension (L3) 4+ Good+ Left Flexion (S2) 4 Good Extension (L3) 4 Good PT-OP-Q Treatments Start: 10/07/18 14:43 Freq: Status: Active Protocol: Document 11/04/18 11:53 AMB (Rec: 11/04/18 11:56 AMB [email or web address]) Cardio Equipment Bicycle (Upright) Duration (Minutes) 5 Resistance 4 Seat Position 2 Gym Equipment Shuttle Recovery Bilateral Squats Details ball between knees Resistance 50 Shuttle Recovery Platform Stable Reps/Time 4 min Therapeutic Exercises Supine Exercises 3 Supine Exercise Name hip flexor stretch Reps/Minutes 30x2 2 Supine Exercise Name SLR Reps/Minutes 2x10 1 Supine Exercise Name hamstring IT band stretch Reps/Minutes 30x2 Standing Exercises 4 Standing Exercise Name hamstring stretch/ IT band stretch Reps/Minutes 30x2 Comments on stair 3 Standing Exercise Name calf stretch Reps/Minutes 30x2 Comments GERARDO Manual Therapy Treatment Soft Tissue Mobilization 2 Body Location IT band Mobilization Type Rolling Comments bilat Joint Mobilizations 1 Joint patellofemoral Direction all planes Grade III Body Position Supine Taping 1 Body Location bilat knees Type of Tape Kinesio Tape Comments 3 Ys PT-OP-R Modalities Start: 10/07/18 14:43 Freq: Status: Active Protocol: Document 10/25/18 09:00 AMB (Rec: 10/25/18 12:49 AMB [email or web address]) Hot Pack/Cold Pack Treatment Cold Pack Location B knees/hips Patient Position Hooklying Treatment Duration (minutes) 10 PT-OP-T Assessment and Plan Start: 10/07/18 14:43 Freq: Status: Active Protocol: Document 11/04/18 09:00 AMB (Rec: 11/04/18 09:47 AMB [id number]) Physical Therapy Assessment Assessment Summary Assessment Pt is continuing to have L knee pain with weightbearing exercises. Physical Therapy Plan Next Visit Focus/Plan Next Note Type Treatment Note Next Visit Plan Hip abduction and VMO strengthening, IT band stretching. Progress squat form. Taping as needed.
--- NOTE | 2018-11-11 15:12 | PT.OTN ---
Current Diagnoses Pain in right knee (11/11/18) Pain in left knee (11/11/18) Physical Therapy Treatment Note PT-OP-A Visit Information Start: 10/07/18 14:43 Freq: Status: Active Protocol: Document 11/11/18 13:00 AMB (Rec: 11/11/18 13:10 AMB [id number]) Out-Patient Physical Therapy Visit Information Visit Information Visit Type Treatment Note Visit Start Time 09:00 Visit Stop Time 09:45 Total Visit Minutes 45 Visit Number 7 PT-OP-B Current Condition Start: 10/07/18 14:43 Freq: Status: Active Protocol: Document 10/07/18 09:00 AMB (Rec: 10/07/18 15:27 AMB [email or web address]) Current Condition History of Current Condition Onset Date 6 months Current Complaints L>R knee pain History of Current Condition The patient reports knee pain that has been increasing since walking all day for work at [employer]. It is medial, posterior, and superior to the patella. She reports clicking, but not locking. Prior Functional Status Baseline Function- ADL's Independent Baseline Function- Mobility Independent Baseline Function- Other Pt was previously jogging outside and went to the gym when she lived in [place] a year ago, has not returned to that activity since moving. 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 PT-OP-C Subjective Start: 10/07/18 14:43 Freq: Status: Active Protocol: Document 11/11/18 13:00 AMB (Rec: 11/11/18 13:10 AMB [id number]) OP-PT Subjective Patient Comments Patient Comments The patient reports mediolateral pain is better. PT-OP-J Posture/Palpation/Skin Start: 10/07/18 14:43 Freq: Status: Active Protocol: Document 10/07/18 09:00 AMB (Rec: 10/07/18 15:37 AMB [email or web address]) Posture Evaluation Comments Posture Comments High arches and hyper lordosis bilaterally Palpation Assessment Location One Palpation Location Knees Palpation Findings Tenderness Palpation Details Tenderness at joint line medially and laterally, tenderness at IT band. No pain with patellar mobilization PT-OP-K Range of Motion Start: 10/07/18 14:43 Freq: Status: Active Protocol: Document 10/07/18 09:00 AMB (Rec: 10/07/18 15:37 AMB [email or web address]) Knee Goniometric Range of Motion Knee Measured in Degrees Right Knee ROM WFL Yes Left Knee ROM WFL Yes PT-OP-L Special Tests Start: 10/07/18 14:43 Freq: Status: Active Protocol: Document 10/07/18 09:00 AMB (Rec: 10/07/18 15:37 AMB [email or web address]) Special Tests Knee Special Tests Beto Test Test Results negative bilat PT-OP-M Strength Start: 10/07/18 14:43 Freq: Status: Active Protocol: Document 10/07/18 09:00 AMB (Rec: 10/07/18 15:37 AMB [email or web address]) Hip Strength Hip Manual Muscle Testing Right Flexion (L2) 4+ Good+ Extension (S1) 4+ Good+ Abduction 4+ Good+ Adduction 4+ Good+ Left Flexion (L2) 4 Good Extension (S1) 4 Good Abduction 4+ Good+ Adduction 4+ Good+ Knee Strength Knee Manual Muscle Testing Right Flexion (S2) 4+ Good+ Extension (L3) 4+ Good+ Left Flexion (S2) 4 Good Extension (L3) 4 Good PT-OP-Q Treatments Start: 10/07/18 14:43 Freq: Status: Active Protocol: Document 11/11/18 13:00 AMB (Rec: 11/11/18 13:16 AMB [id number]) Cardio Equipment Bicycle (Upright) Duration (Minutes) 5 Resistance 4 Seat Position 2 Gym Equipment Shuttle Recovery Bilateral Squats Details ball between knees Resistance 50 Shuttle Recovery Platform Stable Reps/Time 4 min Therapeutic Exercises Supine Exercises 3 Supine Exercise Name hip flexor stretch Reps/Minutes 30x2 2 Supine Exercise Name SLR Reps/Minutes 2x10 1 Supine Exercise Name hamstring IT band stretch Reps/Minutes 30x2 Standing Exercises 4 Standing Exercise Name hamstring stretch/ IT band stretch Reps/Minutes 30x2 Comments on stair 3 Standing Exercise Name calf stretch Reps/Minutes 30x2 Comments GERARDO Manual Therapy Treatment Soft Tissue Mobilization 2 Body Location IT band Mobilization Type Rolling Comments bilat Taping 1 Body Location bilat knees Type of Tape Kinesio Tape Comments 3 Ys PT-OP-R Modalities Start: 10/07/18 14:43 Freq: Status: Active Protocol: Document 10/25/18 09:00 AMB (Rec: 10/25/18 12:49 AMB [email or web address]) Hot Pack/Cold Pack Treatment Cold Pack Location B knees/hips Patient Position Hooklying Treatment Duration (minutes) 10 PT-OP-T Assessment and Plan Start: 10/07/18 14:43 Freq: Status: Active Protocol: Document 11/11/18 13:00 AMB (Rec: 11/11/18 15:12 AMB [email or web address]) Physical Therapy Assessment Assessment Summary Assessment Pt reports improved medial and lateral knee pain, but pain just superior to patella continues unchanged. Physical Therapy Plan Next Visit Focus/Plan Next Note Type Treatment Note Next Visit Plan quad strengthening Progress squat form. Taping as needed.
--- NOTE | 2018-11-25 15:53 | PT.OTN ---
Current Diagnoses Pain in right knee (11/25/18) Pain in left knee (11/25/18) Physical Therapy Treatment Note PT-OP-A Visit Information Start: 10/07/18 14:43 Freq: Status: Active Protocol: Document 11/25/18 11:15 AMB (Rec: 11/25/18 13:01 AMB [email or web address]) Out-Patient Physical Therapy Visit Information Visit Information Visit Type Treatment Note Visit Start Time 11:15 Visit Stop Time 12:00 Total Visit Minutes 45 Visit Number 8 PT-OP-B Current Condition Start: 10/07/18 14:43 Freq: Status: Active Protocol: Document 10/07/18 09:00 AMB (Rec: 10/07/18 15:27 AMB [email or web address]) Current Condition History of Current Condition Onset Date 6 months Current Complaints L>R knee pain History of Current Condition The patient reports knee pain that has been increasing since walking all day for work at [employer]. It is medial, posterior, and superior to the patella. She reports clicking, but not locking. Prior Functional Status Baseline Function- ADL's Independent Baseline Function- Mobility Independent Baseline Function- Other Pt was previously jogging outside and went to the gym when she lived in [place] a year ago, has not returned to that activity since moving. 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 PT-OP-C Subjective Start: 10/07/18 14:43 Freq: Status: Active Protocol: Document 11/25/18 11:15 AMB (Rec: 11/25/18 13:01 AMB [email or web address]) OP-PT Subjective Patient Comments Patient Comments L knee pain superior to patella is continuing and not really improving. R knee pain has improved, but still comes and goes. Pt noticing intermittent stabbing/ burning R anterior quad pain that she does not realy feel has a pattern to it. PT-OP-J Posture/Palpation/Skin Start: 10/07/18 14:43 Freq: Status: Active Protocol: Document 10/07/18 09:00 AMB (Rec: 10/07/18 15:37 AMB [email or web address]) Posture Evaluation Comments Posture Comments High arches and hyper lordosis bilaterally Palpation Assessment Location One Palpation Location Knees Palpation Findings Tenderness Palpation Details Tenderness at joint line medially and laterally, tenderness at IT band. No pain with patellar mobilization PT-OP-K Range of Motion Start: 10/07/18 14:43 Freq: Status: Active Protocol: Document 10/07/18 09:00 AMB (Rec: 10/07/18 15:37 AMB [email or web address]) Knee Goniometric Range of Motion Knee Measured in Degrees Right Knee ROM WFL Yes Left Knee ROM WFL Yes PT-OP-L Special Tests Start: 10/07/18 14:43 Freq: Status: Active Protocol: Document 10/07/18 09:00 AMB (Rec: 10/07/18 15:37 AMB [email or web address]) Special Tests Knee Special Tests Beto Test Test Results negative bilat PT-OP-M Strength Start: 10/07/18 14:43 Freq: Status: Active Protocol: Document 10/07/18 09:00 AMB (Rec: 10/07/18 15:37 AMB [email or web address]) Hip Strength Hip Manual Muscle Testing Right Flexion (L2) 4+ Good+ Extension (S1) 4+ Good+ Abduction 4+ Good+ Adduction 4+ Good+ Left Flexion (L2) 4 Good Extension (S1) 4 Good Abduction 4+ Good+ Adduction 4+ Good+ Knee Strength Knee Manual Muscle Testing Right Flexion (S2) 4+ Good+ Extension (L3) 4+ Good+ Left Flexion (S2) 4 Good Extension (L3) 4 Good PT-OP-Q Treatments Start: 10/07/18 14:43 Freq: Status: Active Protocol: Document 11/25/18 11:15 AMB (Rec: 11/25/18 15:52 AMB [email or web address]) Cardio Equipment Bicycle (Upright) Duration (Minutes) 5 Resistance 4 Seat Position 2 Gym Equipment Shuttle Recovery Bilateral Squats Details ball between knees Resistance 50 Shuttle Recovery Platform Stable Reps/Time 4 min Therapeutic Exercises Supine Exercises 3 Supine Exercise Name hip flexor stretch Reps/Minutes 30x2 1 Supine Exercise Name hamstring IT band stretch Reps/Minutes 30x2 Sidelying Exercises 1 Sidelying Exercise Name hip abd AROM Reps/Minutes 2x10 Therapeutic Activity Therapeutic Activity 1 Comments discussed role of arch supports, pt has high arches and apparently has already tried orange super feet which she did not feel was helpful. Manual Therapy Treatment Soft Tissue Mobilization 2 Body Location IT band Mobilization Type Rolling Comments bilat Joint Mobilizations 1 Joint patellofemoral Direction all planes Grade III Body Position Supine Taping 1 Body Location bilat knees Type of Tape Kinesio Tape Comments 3 Ys PT-OP-R Modalities Start: 10/07/18 14:43 Freq: Status: Active Protocol: Document 10/25/18 09:00 AMB (Rec: 10/25/18 12:49 AMB [email or web address]) Hot Pack/Cold Pack Treatment Cold Pack Location B knees/hips Patient Position Hooklying Treatment Duration (minutes) 10 PT-OP-T Assessment and Plan Start: 10/07/18 14:43 Freq: Status: Active Protocol: Document 11/25/18 11:15 AMB (Rec: 11/25/18 15:52 AMB [email or web address]) Physical Therapy Assessment Goals Two Impairment Gait Short Term Goal (STG) Akiko will walk and stand at work for 4 hours without knee pain. 11/25/18 Progress made: pt has less R knee pain, but continues to have L knee pain STG Duration 4 weeks Tube Coater Goal (LTG) Akiko will ascend and descend 2 flights of stairs without knee pain. LTG Duration 8 weeks One Impairment Strength Short Term Goal (STG) Akiko will improve her knee and hip strength to 4+/5 in all planes. STG Duration 4 weeks Tube Coater Goal (LTG) Carmen will improve her bilateral lower extremity strength so that she can perform a full squat without an increase in knee pain. LTG Duration 8 weeks Assessment Summary Assessment Akiko continues to have a high level of fear regarding her knee pain that makes progressing her strengthening exercises difficult. She is consistent with her HEP at this time. Her ROM is good, but she continues to be concerned with bilateral knee popping. Continued to educate on patellofemoral syndrome, but superior patellar pain on the left has not really improved with PT to date, while R knee pain is. Physical Therapy Plan Next Visit Focus/Plan Next Note Type Treatment Note Next Visit Plan quad strengthening Progress squat form. Taping as needed.
--- NOTE | 2018-11-25 15:54 | PT.OPPOC ---
Current Diagnoses Pain in right knee (11/25/18) Pain in left knee (11/25/18) Provider Visit Care Team Role Provider Type Kalee Wright MD Attending Provider Non-Staff Primary Care Provider Specialty: Medical Address: [address] [place] [address], [place], [phone] Email: Plan Of Care PT-OP-T Assessment and Plan Start: 10/07/18 14:43 Freq: Status: Active Protocol: Document 11/25/18 11:15 AMB (Rec: 11/25/18 15:52 AMB [email or web address]) Physical Therapy Assessment Goals Two Impairment Gait Short Term Goal (STG) Akiko will walk and stand at work for 4 hours without knee pain. 11/25/18 Progress made: pt has less R knee pain, but continues to have L knee pain STG Duration 4 weeks Credit Correspondence Clerk Goal (LTG) Akiko will ascend and descend 2 flights of stairs without knee pain. LTG Duration 8 weeks One Impairment Strength Short Term Goal (STG) Akiko will improve her knee and hip strength to 4+/5 in all planes. STG Duration 4 weeks Credit Correspondence Clerk Goal (LTG) Carmen will improve her bilateral lower extremity strength so that she can perform a full squat without an increase in knee pain. LTG Duration 8 weeks Assessment Summary Assessment Akiko continues to have a high level of fear regarding her knee pain that makes progressing her strengthening exercises difficult. She is consistent with her HEP at this time. Her ROM is good, but she continues to be concerned with bilateral knee popping. Continued to educate on patellofemoral syndrome, but superior patellar pain on the left has not really improved with PT to date, while R knee pain is. Physical Therapy Plan Frequency and Duration Frequency of Treatment 1x/Week Duration of Treatment 8 weeks Plan of Care Start Date 11/25/18 Plan of Care End Date 01/20/19 Next Visit Focus/Plan Next Note Type Treatment Note Next Visit Plan quad strengthening Progress squat form. Taping as needed. Plan of Care Dates Plan of Care Start Date 11/25/18 Plan of Care End Date 01/20/19 Please Sign and Return: I have reviewed this Plan of Care and certify that the skilled therapy services above are required to meet the patient?s needs. Physician Signature Date Printed Name and Credentials Clinical Instructor Signature Printed Name and Credentials
--- NOTE | 2018-11-29 09:59 | PT.OTN ---
Current Diagnoses Pain in right knee (11/29/18) Pain in left knee (11/29/18) Physical Therapy Treatment Note PT-OP-A Visit Information Start: 10/07/18 14:43 Freq: Status: Active Protocol: Document 11/29/18 09:45 AMB (Rec: 11/29/18 09:59 AMB [email or web address]) Out-Patient Physical Therapy Visit Information Visit Information Visit Type Treatment Note Visit Start Time 09:00 Visit Stop Time 09:45 Total Visit Minutes 45 Visit Number 9 PT-OP-B Current Condition Start: 10/07/18 14:43 Freq: Status: Active Protocol: Document 10/07/18 09:00 AMB (Rec: 10/07/18 15:27 AMB [email or web address]) Current Condition History of Current Condition Onset Date 6 months Current Complaints L>R knee pain History of Current Condition The patient reports knee pain that has been increasing since walking all day for work at [employer]. It is medial, posterior, and superior to the patella. She reports clicking, but not locking. Prior Functional Status Baseline Function- ADL's Independent Baseline Function- Mobility Independent Baseline Function- Other Pt was previously jogging outside and went to the gym when she lived in [place] a year ago, has not returned to that activity since moving. 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 PT-OP-C Subjective Start: 10/07/18 14:43 Freq: Status: Active Protocol: Document 11/29/18 09:45 AMB (Rec: 11/29/18 09:59 AMB [email or web address]) OP-PT Subjective Patient Comments Patient Comments Pt saw yesterday and got a steroid shot. Her pain has increased since then. PT-OP-J Posture/Palpation/Skin Start: 10/07/18 14:43 Freq: Status: Active Protocol: Document 10/07/18 09:00 AMB (Rec: 10/07/18 15:37 AMB [email or web address]) Posture Evaluation Comments Posture Comments High arches and hyper lordosis bilaterally Palpation Assessment Location One Palpation Location Knees Palpation Findings Tenderness Palpation Details Tenderness at joint line medially and laterally, tenderness at IT band. No pain with patellar mobilization PT-OP-K Range of Motion Start: 10/07/18 14:43 Freq: Status: Active Protocol: Document 10/07/18 09:00 AMB (Rec: 10/07/18 15:37 AMB [email or web address]) Knee Goniometric Range of Motion Knee Measured in Degrees Right Knee ROM WFL Yes Left Knee ROM WFL Yes PT-OP-L Special Tests Start: 10/07/18 14:43 Freq: Status: Active Protocol: Document 10/07/18 09:00 AMB (Rec: 10/07/18 15:37 AMB [email or web address]) Special Tests Knee Special Tests Beto Test Test Results negative bilat PT-OP-M Strength Start: 10/07/18 14:43 Freq: Status: Active Protocol: Document 10/07/18 09:00 AMB (Rec: 10/07/18 15:37 AMB [email or web address]) Hip Strength Hip Manual Muscle Testing Right Flexion (L2) 4+ Good+ Extension (S1) 4+ Good+ Abduction 4+ Good+ Adduction 4+ Good+ Left Flexion (L2) 4 Good Extension (S1) 4 Good Abduction 4+ Good+ Adduction 4+ Good+ Knee Strength Knee Manual Muscle Testing Right Flexion (S2) 4+ Good+ Extension (L3) 4+ Good+ Left Flexion (S2) 4 Good Extension (L3) 4 Good PT-OP-Q Treatments Start: 10/07/18 14:43 Freq: Status: Active Protocol: Document 11/29/18 09:45 AMB (Rec: 11/29/18 09:59 AMB [email or web address]) Therapeutic Exercises Supine Exercises 3 Supine Exercise Name hip flexor stretch Reps/Minutes 30x2 1 Supine Exercise Name hamstring IT band stretch Reps/Minutes 30x2 Manual Therapy Treatment Soft Tissue Mobilization 2 Body Location IT band Mobilization Type Rolling Comments bilat Joint Mobilizations 1 Joint patellofemoral Direction all planes Grade III Body Position Supine Taping 1 Body Location bilat knees Type of Tape Kinesio Tape Comments I over patellar tendon PT-OP-R Modalities Start: 10/07/18 14:43 Freq: Status: Active Protocol: Document 10/25/18 09:00 AMB (Rec: 10/25/18 12:49 AMB [email or web address]) Hot Pack/Cold Pack Treatment Cold Pack Location B knees/hips Patient Position Hooklying Treatment Duration (minutes) 10 PT-OP-T Assessment and Plan Start: 10/07/18 14:43 Freq: Status: Active Protocol: Document 11/29/18 09:45 AMB (Rec: 11/29/18 09:59 AMB [email or web address]) Physical Therapy Assessment Assessment Summary Assessment Pt is having more pain today, limping into the session. Encouraged in gentle movement and icing when she gets home. Physical Therapy Plan Next Visit Focus/Plan Next Note Type Treatment Note Next Visit Plan quad strengthening Progress squat form. Taping as needed.
--- NOTE | 2018-12-09 16:04 | PT.OTN ---
Current Diagnoses Pain in right knee (12/09/18) Pain in left knee (12/09/18) Physical Therapy Treatment Note PT-OP-A Visit Information Start: 10/07/18 14:43 Freq: Status: Active Protocol: Document 12/09/18 13:00 AMB (Rec: 12/09/18 13:10 AMB [email or web address]) Out-Patient Physical Therapy Visit Information Visit Information Visit Type Treatment Note Visit Start Time 13:00 Visit Stop Time 13:45 Total Visit Minutes 45 Visit Number 10 PT-OP-B Current Condition Start: 10/07/18 14:43 Freq: Status: Active Protocol: Document 10/07/18 09:00 AMB (Rec: 10/07/18 15:27 AMB [email or web address]) Current Condition History of Current Condition Onset Date 6 months Current Complaints L>R knee pain History of Current Condition The patient reports knee pain that has been increasing since walking all day for work at [employer]. It is medial, posterior, and superior to the patella. She reports clicking, but not locking. Prior Functional Status Baseline Function- ADL's Independent Baseline Function- Mobility Independent Baseline Function- Other Pt was previously jogging outside and went to the gym when she lived in [place] a year ago, has not returned to that activity since moving. 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 PT-OP-C Subjective Start: 10/07/18 14:43 Freq: Status: Active Protocol: Document 12/09/18 13:00 AMB (Rec: 12/09/18 13:10 AMB [email or web address]) OP-PT Subjective Patient Comments Patient Comments Pt has now used half of her PT benefits for the year so wants to go on hold for now until she talks with again. PT-OP-J Posture/Palpation/Skin Start: 10/07/18 14:43 Freq: Status: Active Protocol: Document 10/07/18 09:00 AMB (Rec: 10/07/18 15:37 AMB [email or web address]) Posture Evaluation Comments Posture Comments High arches and hyper lordosis bilaterally Palpation Assessment Location One Palpation Location Knees Palpation Findings Tenderness Palpation Details Tenderness at joint line medially and laterally, tenderness at IT band. No pain with patellar mobilization PT-OP-K Range of Motion Start: 10/07/18 14:43 Freq: Status: Active Protocol: Document 10/07/18 09:00 AMB (Rec: 10/07/18 15:37 AMB [email or web address]) Knee Goniometric Range of Motion Knee Measured in Degrees Right Knee ROM WFL Yes Left Knee ROM WFL Yes PT-OP-L Special Tests Start: 10/07/18 14:43 Freq: Status: Active Protocol: Document 10/07/18 09:00 AMB (Rec: 10/07/18 15:37 AMB [email or web address]) Special Tests Knee Special Tests Beto Test Test Results negative bilat PT-OP-M Strength Start: 10/07/18 14:43 Freq: Status: Active Protocol: Document 10/07/18 09:00 AMB (Rec: 10/07/18 15:37 AMB [email or web address]) Hip Strength Hip Manual Muscle Testing Right Flexion (L2) 4+ Good+ Extension (S1) 4+ Good+ Abduction 4+ Good+ Adduction 4+ Good+ Left Flexion (L2) 4 Good Extension (S1) 4 Good Abduction 4+ Good+ Adduction 4+ Good+ Knee Strength Knee Manual Muscle Testing Right Flexion (S2) 4+ Good+ Extension (L3) 4+ Good+ Left Flexion (S2) 4 Good Extension (L3) 4 Good PT-OP-Q Treatments Start: 10/07/18 14:43 Freq: Status: Active Protocol: Document 12/09/18 13:00 AMB (Rec: 12/09/18 13:18 AMB [id number]) Gym Equipment Shuttle Recovery Bilateral Squats Details ball between knees Resistance 75 Shuttle Recovery Platform Stable Reps/Time 4 min Therapeutic Exercises Supine Exercises 3 Supine Exercise Name hip flexor stretch Reps/Minutes 30x2 1 Supine Exercise Name hamstring IT band stretch Reps/Minutes 30x2 Standing Exercises 3 Standing Exercise Name calf stretch Reps/Minutes 30x2 Comments GERARDO Manual Therapy Treatment Joint Mobilizations 1 Joint patellofemoral Direction all planes Grade III Body Position Supine Taping 1 Body Location bilat knees Type of Tape Kinesio Tape Comments I over patellar tendon PT-OP-R Modalities Start: 10/07/18 14:43 Freq: Status: Active Protocol: Document 10/25/18 09:00 AMB (Rec: 10/25/18 12:49 AMB [email or web address]) Hot Pack/Cold Pack Treatment Cold Pack Location B knees/hips Patient Position Hooklying Treatment Duration (minutes) 10 PT-OP-T Assessment and Plan Start: 10/07/18 14:43 Freq: Status: Active Protocol: Document 12/09/18 13:27 AMB (Rec: 12/09/18 13:30 AMB [id number]) Physical Therapy Assessment Goals Two Impairment Gait Short Term Goal (STG) Akiko will walk and stand at work for 4 hours without knee pain. 11/25/18 Progress made: pt has less R knee pain, but continues to have L knee pain STG Duration NOT MET [facility] Goal (LTG) Akiko will ascend and descend 2 flights of stairs without knee pain. LTG Duration NOT MET One Impairment Strength Short Term Goal (STG) Akiko will improve her knee and hip strength to 4+/5 in all planes. STG Duration PROGRESS MADE [facility] Goal (LTG) Carmen will improve her bilateral lower extremity strength so that she can perform a full squat without an increase in knee pain. LTG Duration PARTIALLY MET Assessment Summary Assessment Pt feels squatting is about 50 % better. Standing is still painful. Reports 8/10 pain by the end of her work shift in L knee. R knee is improving. Pt to go on hold and continue with HEP until further workup with MD as she is concerned about using all of her PT benefits for the year. 10 visits remain. Physical Therapy Plan Hold Physical Therapy Reason For Hold Wait for further follow up to develop plan to see if we should use more of her visits or not. Next Visit Focus/Plan Next Note Type Treatment Note
--- NOTE | 2019-03-22 15:43 | PT.OPDS ---
Current Diagnoses Pain in right knee (12/09/18) Pain in left knee (12/09/18) Provider Visit Care Team Role Provider Type Kalee Wright MD Attending Provider Non-Staff Primary Care Provider Specialty: Medical Address: [address] [place] [address], [phone] Email: Visit Number Visit Number 10 Discharge Summary PT-OP-B Current Condition Start: 10/07/18 14:43 Freq: Status: Active Protocol: Document 10/07/18 09:00 AMB (Rec: 10/07/18 15:27 AMB [email or web address]) Current Condition History of Current Condition Onset Date 6 months Current Complaints L>R knee pain History of Current Condition The patient reports knee pain that has been increasing since walking all day for work at [employer]. It is medial, posterior, and superior to the patella. She reports clicking, but not locking. Prior Functional Status Baseline Function- ADL's Independent Baseline Function- Mobility Independent Baseline Function- Other Pt was previously jogging outside and went to the gym when she lived in [place] a year ago, has not returned to that activity since moving. 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 PT-OP-C Subjective Start: 10/07/18 14:43 Freq: Status: Active Protocol: Document 12/09/18 13:00 AMB (Rec: 12/09/18 13:10 AMB [id number]) OP-PT Subjective Patient Comments Patient Comments Pt has now used half of her PT benefits for the year so wants to go on hold for now until she talks with MD again. PT-OP-J Posture/Palpation/Skin Start: 10/07/18 14:43 Freq: Status: Active Protocol: Document 10/07/18 09:00 AMB (Rec: 10/07/18 15:37 AMB [email or web address]) Posture Evaluation Comments Posture Comments High arches and hyper lordosis bilaterally Palpation Assessment Location One Palpation Location Knees Palpation Findings Tenderness Palpation Details Tenderness at joint line medially and laterally, tenderness at IT band. No pain with patellar mobilization PT-OP-K Range of Motion Start: 10/07/18 14:43 Freq: Status: Active Protocol: Document 10/07/18 09:00 AMB (Rec: 10/07/18 15:37 AMB [email or web address]) Knee Goniometric Range of Motion Knee Right Knee ROM WFL Yes Left Knee ROM WFL Yes PT-OP-L Special Tests Start: 10/07/18 14:43 Freq: Status: Active Protocol: Document 10/07/18 09:00 AMB (Rec: 10/07/18 15:37 AMB [email or web address]) Special Tests Knee Special Tests Beto Test Test Results negative bilat PT-OP-M Strength Start: 10/07/18 14:43 Freq: Status: Active Protocol: Document 10/07/18 09:00 AMB (Rec: 10/07/18 15:37 AMB [email or web address]) Hip Strength Hip Manual Muscle Testing Right Flexion (L2) 4+ Good+ Extension (S1) 4+ Good+ Abduction 4+ Good+ Adduction 4+ Good+ Left Flexion (L2) 4 Good Extension (S1) 4 Good Abduction 4+ Good+ Adduction 4+ Good+ Knee Strength Knee Manual Muscle Testing Right Flexion (S2) 4+ Good+ Extension (L3) 4+ Good+ Left Flexion (S2) 4 Good Extension (L3) 4 Good PT-OP-T Assessment and Plan Start: 10/07/18 14:43 Freq: Status: Active Protocol: Document 03/22/19 15:41 AMB (Rec: 03/22/19 15:43 AMB [email or web address]) Physical Therapy Assessment Goals Two Impairment Gait Short Term Goal (STG) Akiko will walk and stand at work for 4 hours without knee pain. 11/25/18 Progress made: pt has less R knee pain, but continues to have L knee pain STG Duration NOT MET Master Welder Goal (LTG) Akiko will ascend and descend 2 flights of stairs without knee pain. LTG Duration NOT MET One Impairment Strength Short Term Goal (STG) Akiko will improve her knee and hip strength to 4+/5 in all planes. STG Duration PROGRESS MADE Master Welder Goal (LTG) Carmen will improve her bilateral lower extremity strength so that she can perform a full squat without an increase in knee pain. LTG Duration PARTIALLY MET Assessment Summary Assessment Patient was put on hold in November, due to using half of her insurance authorized visits for the calendar year. She was hoping to follow up with her physician regarding further treatment, as she felt that the pain was better, but was continuing. We called her about a month ago, and she was still waiting for an appointment with a new doctor. At this point since she has not been seen in 3 months, we will discharge her, but she would be welcome to return with a new physician referall if needed in the future. Physical Therapy Plan Discharge Physical Therapy Discharge Reasons No Longer Attending PT
== END 2019-03-23 11:00 | disposition home or self-care (01) ==
LOC: PHYS 13:00
PROVIDERS: PCP Family Medicine; Visit Provider Family Medicine
DX: M25.561 Pain in right knee (principal); M25.562 Pain in left knee
CPT/HCPCS: 97014; 97110; 97140; 97161; G0283

== ENCOUNTER 2019-04-28 20:22 | Emergency (ER) | payer BC, SELFPAY ==
[2019-04-28 20:25] VITALS: PULSE 105; RESP 19; TEMP 36.4; O2SAT 97; BMI 23.6
--- NOTE | 2019-04-28 20:45 | DI.CT.S_ITS ---
PROCEDURE: CT ABDOMEN PELVIS W CON INDICATIONS: severe pain, N/V/D, recent hyster TECHNIQUE: After the administration of intravenous contrast, 5 mm thick sections acquired from the diaphragm to the symphysis. 5 mm coronal and sagittal reformats were acquired. For radiation dose reduction, the following was used: automated exposure control, adjustment of mA and/or kV according to patient size. COMPARISON: [facility], CT, ABDOMEN/PELVIS WITH CONTRAST, 06/01/2017, 17:04. FINDINGS: Image quality: Excellent. ABDOMEN: Lung bases: Mild bibasilar atelectasis. Heart size is normal. Bilateral breast implants are noted. Solid organs: Liver is normal in size and enhancement. Gallbladder is unremarkable. Biliary system is non dilated. Pancreas enhances normally. Spleen is normal in size and enhancement. No adrenal nodules. Kidneys demonstrate normal size and enhancement, without hydronephrosis. Peritoneum and bowel: There is extensive fluid filled loops of small bowel and colon seen throughout the abdomen. There is mild dilatation of relatively long segment of small bowel in the lower midline abdomen. No definite transition point noted. Numerous opposing loops of nondistended small bowel noted just superior to the level of the urinary bladder and lower midline pelvis with minimal, circumferential wall thickening and suggestion of mild hyperemia. No organize fluid collection, free air, or adjacent inflammatory stranding. Nodes and vessels: No retroperitoneal or mesenteric adenopathy by size criteria. Aorta and inferior vena cava are normal in size. Miscellaneous: No ventral hernias. PELVIS: Genitourinary: There is mild circumferential wall thickening of the urinary bladder slightly greater than expected for degree of distention. No perivesicular inflammation. Status post hysterectomy. No suspicious fluid collections identified in the region.. Miscellaneous: No inguinal hernias or adenopathy. Bones: No suspicious bony lesions. No vertebral body compression fractures. IMPRESSION: Several loops of minimally distended loops of small bowel in the lower midline abdomen with gradual transition to decompressed and normal caliber small bowel. No transition point seen. There is however, mild circumferential wall thickening of several loops of adjacent small bowel in the lower midline pelvis with mild hyperemia as well as extensive fluid filled small bowel and colon. Additionally, the urinary bladder is immediately caudal to the segments of bowel and it demonstrates minimal wall thickening. Overall, findings may represent sequela of nonspecific enteritis and colitis with inflammatory/infectious etiology most likely. Possible cystitis. Distended loops of bowel may be related to decreased transit secondary to infectious/inflammatory changes. Early bowel obstruction not excluded if clinically appropriate. Additionally, the fluid filled appendix is seen adjacent to the right side of these loops of bowel. It demonstrates no wall thickening and is fluid-filled. The appendix is minimally prominent in size measuring approximately 6 mm in diameter. Recommend continued clinical surveillance with repeat imaging as needed. Of note, findings are also in close vicinity to the site of recent hysterectomy. No evidence for organize fluid collection or free air. Findings were discussed with Dr. Deras of the emergency department staff at 2220 hrs. Dictated by: Luis Daniel Gloria M.D. on 04/28/2019 at 21:53 Approved by: Luis Daniel Gloria M.D. on 04/28/2019 at 22:22
[2019-04-28] MEDS: SODIUM CHLORIDE 0.9% 1,000 ML 1000 ML IV (21:07)
[2019-04-28 21:08] LABS: Basophils Absolute Auto 0 /uL (0-100); Basophils Percent Auto 0.3 % (0-2); Eosinophils Absolute Auto 300 /uL (0-450); Eosinophils Percent Auto 1.6 % (2-4); Hematocrit 49.5 % (36-46); Hemoglobin 16.7 g/dL (12.0-16.0); Lymphocytes Absolute Auto 1500 /uL (1100-4500); Lymphocytes Percent Auto 9.3 % (25-40); Mean Corpuscular HGB Conc 33.8 % (30-36); Mean Corpuscular Hemoglobin 30.5 PG (26-34); Mean Corpuscular Volume 90.4 fL (80-100); Monocytes Absolute Auto 600 /uL (0-900); Monocytes Percent Auto 3.8 % (3-14); Neutrophils Absolute Auto 13600 /uL (1500-7000); Platelet Count 396 X10^3/uL (150-400); Red Blood Cell Count 5.47 X10^6/uL (4.0-5.2); Red Cell Distribution Width 13.3 % (11.6-14.8)
[2019-04-28] MEDS: HYDROMORPHONE 1 MG INJ IV (21:08)
[2019-04-28] MEDS: ONDANSETRON 4 MG/2 ML INJ IV (21:08)
[2019-04-28] MEDS: PANTOPRAZOLE 40 MG VIAL IV (21:08)
[2019-04-28 21:10] LABS: Add Manual Diff / Slide Review SLIDE REVIEW
[2019-04-28] MEDS: diphenhydrAMINE 50 MG/ML VIAL 25 MG IV (21:12)
[2019-04-28] MEDS: methylPREDNISolone 125 MG/2 ML VIAL IV (21:12)
[2019-04-28 21:15] LABS: Alanine Aminotransferase 11 IU/L (9-52); Albumin 5.2 g/dL (3.5-5.0); Albumin Globulin Ratio 1.2 (1.0-2.8); Alkaline Phosphatase 106 U/L (38-126); Aspartate Aminotransferase 25 IU/L (14-36); BUN Creatinine Ratio 21.4 (6-22); Bilirubin Total 0.8 mg/dL (0.2-1.3); Blood Urea Nitrogen 15 mg/dL (7-17); Calcium 10.4 mg/dL (8.4-10.2); Carbon Dioxide 23 mmol/L (22-32); Chloride 105 mmol/L (98-107); Estimated Glomerular Filt Rate > 60.0 mL/min (>60); Globulin 4.3 g/dL (1.7-4.1); Glucose 146 mg/dL (70-100); Lipase 131 U/L (23-300); Potassium 4.6 mmol/L (3.4-5.1); Sodium 142 mmol/L (137-145); Total Protein 9.5 g/dL (6.3-8.2)
[2019-04-28 21:16] LABS: HEMOLYSIS 86 (0-50)
[2019-04-28 21:23] VITALS: BP 112/70; PULSE 83; RESP 15; O2SAT 95
[2019-04-28 21:32] LABS: RBC Morphology Normal Morphology
--- NOTE | 2019-04-28 22:04 | ED.ABDPAIN ---
HPI - Abdominal Pain General Chief Complaint: Abdominal Pain Stated Complaint: recent surgery, lots of pain Time Seen by Provider: 04/28/19 20:28 Source: patient and family Mode of arrival: ambulatory Limitations: no limitations History of Present Illness HPI narrative: 48-year-old female nonsmoker presents with family in the chief complaint of severe lower abdominal pain in the setting of nausea, vomiting and diarrhea over the course of the past day. She has been exposed to other ill persons with similar symptoms. She has had no fever chills. She has had multiple episodes of vomiting over the course of the day and too many episodes of diarrhea to count. She denies exposure to bad foods or international travel but did have a laparoscopic hysterectomy a few weeks ago at an outside facility. She had returned to baseline and had been feeling completely normal up until earlier today. Her pain is worse with motion and improves with rest. She denies radiation of the pain. MD complaint: abdominal pain Onset (ago): hour(s) Pain Consistency: constant Location: suprapubic Severity: moderate Quality: cramping and aching Radiation: none Relieving factors: rest Exacerbating factors: bowel movement, vomiting and movement Context: recent antibiotic use and recent surgery/procedure Associated symptoms: nausea, vomiting and diarrhea Treatments prior to arrival: prescription analgesics Related Data Patient : No Previous Rx's Medication Instructions Recorded azithromycin 1 gm PO QDAY 1 Days #0 pck 06/01/17 tramadol 50 mg PO Q6HP PRN #20 tab 06/01/17 meloxicam 15 mg PO DAILY #30 tab 08/27/18 ondansetron 4 mg PO TID-QID PRN #10 tab 04/29/19 oxycodone 5 mg PO Q4-6H PRN #20 tab 04/29/19 Allergies Allergy/AdvReac Type Severity Reaction Status Date / Time Iodine and Iodide Containing Allergy Verified 08/27/18 14:15 Produc Review of Systems Constitutional Denies chills, Denies fever(s), Denies lethargy and Denies weakness Eyes Denies change in vision, Denies eye discharge, Denies irritation and Denies loss of vision ENT Ears, Nose, Mouth, and Throat: Denies change in voice, Denies neck pain and Denies sore throat Cardiovascular Denies chest pain, Denies irregular heart rhythm, Denies lightheadedness, Denies palpitations, Denies dyspnea, Denies dyspnea on exertion and Denies orthopnea Respiratory Denies cough, Denies dyspnea, Denies dyspnea on exertion and Denies wheezing Gastrointestinal Gastrointestinal: Reports abdominal pain, Reports change in bowel habits, Reports diarrhea, Reports nausea and Reports vomiting Genitourinary Denies hematuria, Denies flank pain, Denies urinary incontinence and Denies urinary urgency Musculoskeletal Denies neck pain Integumentary/Breasts Denies pruritus, Denies erythema, Denies rash and Denies wounds Neurologic Denies confusion, Denies loss of vision and Denies weakness Psychiatric Denies anxiety, Denies confusion, Denies depression, Denies homicidal ideation and Denies suicidal ideation Endocrine Denies palpitations Hematologic/Lymphatic Denies easy bruising Allergic/Immunologic Denies wheezing PFSH Medical History Chronic knee pain (Chronic) Ovarian cyst (Resolved) Surgical History History of removal of ovarian cyst (Resolved) Social History (Updated 08/27/18 @ 16:02 by Fatou Moore PA-C) Smoking Status: Never smoker additional social history: occasional ETOH, denies street drugs Social History Smoking Status: Never smoker additional social history: occasional ETOH, denies street drugs Exam Narrative Exam Narrative: GENERAL: A 48-year-old female appears stated age, tearful, holding an emesis bag and obviously in pain HEAD: Atraumatic. Normocephalic. No temporal or scalp tenderness. EYES: Pupils equal round and reactive. Extraocular motions intact. No scleral icterus. No injection or drainage. ENT: Nose without bleeding, purulent drainage or septal hematoma. Throat without erythema, tonsillar hypertrophy or exudate. Uvula midline. Airway patent. NECK: Trachea midline. No JVD or lymphadenopathy. Supple, nontender, no meningeal signs. CARDIOVASCULAR: Regular rate and rhythm without murmurs, gallops, or rubs. RESPIRATORY: Clear to auscultation. Breath sounds equal bilaterally. No wheezes, rales, or rhonchi. GASTROINTESTINAL: Abdomen soft, tender in the suprapubic region nondistended. No hepato-splenomegaly, or palpable masses. No guarding. No evidence of surgical wound dehiscence, hematoma or seroma EXTREMITIES: No clubbing, cyanosis, or edema. No joint tenderness, effusion, or edema noted. BACK: Nontender without deformity or crepitance. No flank tenderness. NEURO: AOx3. SKIN: No rash or erythema. Initial Vital Signs Initial Vital Signs: Vital Signs Temperature 97.5 F L 04/28/19 20:25 Pulse Rate 105 H 04/28/19 20:25 Respiratory Rate 19 04/28/19 20:25 Pulse Oximetry 97 04/28/19 20:25 Course Orders Ordered: ED Orders 04/28/19 20:45 CT abdomen pelvis w con Stat 04/28/19 20:55 Complete Blood Count AUTO DIFF Stat Comprehensive Metabolic Panel Stat Lipase Stat 04/28/19 23:07 Urine Microscopic Stat Discontinued Medications Diphenhydramine HCl (Benadryl) 25 mg IV NOW ONE Stop: 04/28/19 20:56 Last Admin: 04/28/19 21:12 Dose: 25 mg Hydromorphone HCl (Dilaudid) 1 mg IV Q15M PRN PRN Reason: Pain, Severe (7-10) Last Admin: 04/28/19 21:08 Dose: 1 mg Hydromorphone HCl (Dilaudid) 0.5 mg IV NOW ONE Stop: 04/29/19 00:25 Last Admin: 04/29/19 00:36 Dose: 0.5 mg Sodium Chloride (Normal Saline 0.9%) 1,000 mls @ 1,000 mls/hr IV BOLUS ONE Stop: 04/28/19 21:42 Last Infusion: 04/28/19 22:34 Dose: 0 mls/hr Infusion: 04/28/19 22:04 Dose: 999 mls/hr Infusion: 04/28/19 21:26 Dose: 0 mls/hr Admin: 04/28/19 21:07 Dose: 1,000 mls/hr Methylprednisolone (Solu-Medrol 125 Mg Vial) 125 mg IV NOW ONE Stop: 04/28/19 20:56 Last Admin: 04/28/19 21:12 Dose: 125 mg Ondansetron HCl (Zofran) 4 mg IV NOW ONE Stop: 04/28/19 20:44 Last Admin: 04/28/19 21:08 Dose: 4 mg Ondansetron HCl (Zofran Odt Prepack) 1 bottle MISC SEEINSTR ONE Stop: 04/29/19 00:25 Last Admin: 04/29/19 00:35 Dose: 1 bottle Oxycodone/Acetaminophen (Endocet 5/325 Prepack) 1 bottle MISC SEEINSTR ONE Stop: 04/29/19 00:25 Last Admin: 04/29/19 00:35 Dose: 1 bottle Pantoprazole Sodium (Protonix) 40 mg IV NOW ONE Stop: 04/28/19 20:44 Last Admin: 04/28/19 21:08 Dose: 40 mg Consultations Consultation #1: call to Dr. Ryan (Gen Surgery) to discuss CT findings and H/P. He suggests that CT is very reassuring, but recommends conversation with branch customer service representative at [facility] Consultation #2: call to Dr. Hill at [facility] (branch customer service representative) whom after discussion of H/P, labs, and imaging states the findings are reassuring, and most likely due to a non surgically related enteritis, but she is happy to see patient in the clinic on wednesday Vital Signs - 8 hr 04/28/19 20:25 04/28/19 21:23 04/28/19 22:30 Temperature 97.5 F L Pulse Rate 105 H 83 78 Respiratory Rate 19 15 13 Blood Pressure [Right Arm] 112/70 114/73 Pulse Oximetry 97 95 99 04/28/19 22:33 Temperature Pulse Rate 77 Respiratory Rate 12 Blood Pressure [Right Arm] 118/66 Pulse Oximetry 99 MDM - Abdominal Pain Lab Data Result diagrams: 04/28/19 20:55 04/28/19 20:55 Lab Results 04/28/19 04/28/19 04/28/19 Range/Units 20:55 20:55 23:07 WBC 16.0 H (4.5-11.0) X10^3/uL RBC 5.47 H (4.0-5.2) X10^6/uL Hgb 16.7 H (12.0-16.0) g/dL Hct 49.5 H (36-46) % MCV 90.4 (80-100) fL MCH 30.5 (26-34) PG MCHC 33.8 (30-36) % RDW 13.3 (11.6-14.8) % Plt Count 396 (150-400) X10^3/uL Neut % (Auto) 85.0 H (50-75) % Lymph % (Auto) 9.3 L (25-40) % Bacon % (Auto) 3.8 (3-14) % Eos % (Auto) 1.6 L (2-4) % Baso % (Auto) 0.3 (0-2) % Neut # (Auto) 00242 H (9328-1736) /uL Lymph # (Auto) 1500 (1088-9732) /uL Bacon # (Auto) 600 (0-900) /uL Eos # (Auto) 300 (0-450) /uL Baso # (Auto) 0 (0-100) /uL RBC Morphology Normal morphology Sodium 142 (137-145) mmol/L Potassium 4.6 (3.4-5.1) mmol/L Chloride 105 (98-107) mmol/L Carbon Dioxide 23 (22-32) mmol/L BUN 15 (7-17) mg/dL Creatinine 0.70 (0.52-1.04) mg/dL Estimated GFR > 60.0 (>60) mL/min BUN/Creatinine Ratio 21.4 (6-22) Glucose 146 H (70-100) mg/dL Calcium 10.4 H (8.4-10.2) mg/dL Total Bilirubin 0.8 (0.2-1.3) mg/dL AST 25 (14-36) IU/L ALT 11 (9-52) IU/L Alkaline Phosphatase 106 (38-126) U/L Total Protein 9.5 H (6.3-8.2) g/dL Albumin 5.2 H (3.5-5.0) g/dL Globulin 4.3 H (1.7-4.1) g/dL Albumin/Globulin Ratio 1.2 (1.0-2.8) Lipase 131 (23-300) U/L Urine RBC None seen (0-5/HPF) Urine WBC None seen (0-5/HPF) Urine Bacteria None seen (None) Ur Culture Indicated? Cult not indicated Micro UA Comment Microscopic normal Point of care testing: Urine Dip Bedside Urine Glucose Negative Bedside Urine Bilirubin - Negative Bedside Urine Ketone - Negative Urine Specific [place] 1.010 Bedside Urine Occult Blood - Negative Bedside Urine pH 5.5 Bedside Urine Protein - Negative Bedside Urine Urobilinogen - Negative Bedside Urine Nitrite - Negative Bedside Urine Leukocytes + 70 Esterase MDM Narrative Medical decision making narrative: 48F with N/V/D and severe abdominal pain 3 weeks after hysterectomy. She had returned to her baseline and labs/imaging would suggest no post surgical emergency is present. She's been exposed to family with similar N/V/D symptoms. She was in the ED for many hours and unable to produce a stool sample. Elevated WBC is noted, but no other signs to suggest sepsis. Patient notes improvement after the above stated therapies. C Diff considered, but thought less likely given no BM in the ED. UA notes some leuks, but patient has no dysuria, frequency, or urgency. Will await culture results given possibility of ABX associated diarrhea. Discussions with Gen Surg/ tobacco grower and close follow up with return precautions are the overwhelming recommendation. Patient and given return precautions and understand these based on ability to verbalize them back to me. Questions answered to their apparent satisfaction. Discharge Plan Departure Patient Disposition: Home Clinical Impression: Enteritis Abdominal pain Qualifiers: Abdominal location: generalized Qualified Code(s): R10.84 - Generalized abdominal pain Discharge Date/Time: 04/29/19 00:57 Interventions: ED Discharge Assessment Last Done: 04/29/19 00:54 Instructions: DI for Abdominal Pain-Adult Activity Restrictions/Additional Instructions: *You have been diagnosed with [generalized abdominal pain, nausea, vomiting and diarrhea] *What to do: *Take medications as directed *Follow up with your primary care provider in 2-3 days, call for an appointment. Let them know you were seen in the Emergency Department and that we ask that you be seen in follow up *Return to ER if you should have any new, worsening or concerning symptoms 1. Drink plenty of fluids with frequent small sips. 2. For the next 24 hours a clear liquid diet is advised. After that please employ a brat diet which would include bananas, rice, apples, toast. 3. Please take medications as directed. 4. Please follow-up with your doctor in the next 1-2 days. Call the office for an appointment. 5. Please return to the emergency Department for any worsening or persistent symptoms, such as increasing pain or fever. Prescriptions: New ondansetron 4 mg tablet,disintegrating 4 mg PO TID-QID PRN (Reason: nausea and vomiting) Qty: 10 RF: 0 oxycodone 5 mg tablet 5 mg PO Q4-6H PRN (Reason: pain) Qty: 20 RF: 0 No Action tramadol 50 MG tablet 50 mg PO Q6HP PRNQty: 20 RF: 0 azithromycin 1 GM packet 1 gm PO QDAY 1 Days Qty: 0 RF: 0 meloxicam 7.5 mg tablet 15 mg PO DAILY Qty: 30 RF: 0 Referrals: Kalee Wright MD [Primary Care Provider] -
[2019-04-28 22:30] VITALS: BP 114/73; PULSE 78; RESP 13; O2SAT 99
[2019-04-28 22:33] VITALS: BP 118/66; PULSE 77; RESP 12; O2SAT 99
--- NOTE | 2019-04-28 22:58 | ED_ITS ---
HPI - Abdominal Pain General Chief Complaint: Abdominal Pain Stated Complaint: recent surgery, lots of pain Time Seen by Provider: 04/28/19 20:28 Source: patient and family Mode of arrival: ambulatory Limitations: no limitations History of Present Illness HPI narrative: 48-year-old female nonsmoker presents with family in the chief complaint of severe lower abdominal pain in the setting of nausea, vomiting and diarrhea over the course of the past day. She has been exposed to other ill persons with similar symptoms. She has had no fever chills. She has had multiple episodes of vomiting over the course of the day and too many episodes of diarrhea to count. She denies exposure to bad foods or international travel but did have a laparoscopic hysterectomy a few weeks ago at an outside facility. She had returned to baseline and had been feeling completely normal up until earlier today. Her pain is worse with motion and improves with rest. She denies radiation of the pain. MD complaint: abdominal pain Onset (ago): hour(s) Pain Consistency: constant Location: suprapubic Severity: moderate Quality: cramping and aching Radiation: none Relieving factors: rest Exacerbating factors: bowel movement, vomiting and movement Context: recent antibiotic use and recent surgery/procedure Associated symptoms: nausea, vomiting and diarrhea Treatments prior to arrival: prescription analgesics Related Data Patient : No Previous Rx's Medication Instructions Recorded azithromycin 1 gm PO QDAY 1 Days #0 pck 06/01/17 tramadol 50 mg PO Q6HP PRN #20 tab 06/01/17 meloxicam 15 mg PO DAILY #30 tab 08/27/18 ondansetron 4 mg PO TID-QID PRN #10 tab 04/29/19 oxycodone 5 mg PO Q4-6H PRN #20 tab 04/29/19 Allergies Allergy/AdvReac Type Severity Reaction Status Date / Time Iodine and Iodide Containing Allergy Verified 08/27/18 14:15 Produc Review of Systems Constitutional Denies chills, Denies fever(s), Denies lethargy and Denies weakness Eyes Denies change in vision, Denies eye discharge, Denies irritation and Denies loss of vision ENT Ears, Nose, Mouth, and Throat: Denies change in voice, Denies neck pain and Denies sore throat Cardiovascular Denies chest pain, Denies irregular heart rhythm, Denies lightheadedness, Denies palpitations, Denies dyspnea, Denies dyspnea on exertion and Denies orthopnea Respiratory Denies cough, Denies dyspnea, Denies dyspnea on exertion and Denies wheezing Gastrointestinal Gastrointestinal: Reports abdominal pain, Reports change in bowel habits, Reports diarrhea, Reports nausea and Reports vomiting Genitourinary Denies hematuria, Denies flank pain, Denies urinary incontinence and Denies urinary urgency Musculoskeletal Denies neck pain Integumentary/Breasts Denies pruritus, Denies erythema, Denies rash and Denies wounds Neurologic Denies confusion, Denies loss of vision and Denies weakness Psychiatric Denies anxiety, Denies confusion, Denies depression, Denies homicidal ideation and Denies suicidal ideation Endocrine Denies palpitations Hematologic/Lymphatic Denies easy bruising Allergic/Immunologic Denies wheezing PFSH Medical History Chronic knee pain (Chronic) Ovarian cyst (Resolved) Surgical History History of removal of ovarian cyst (Resolved) Social History (Updated 08/27/18 @ 16:02 by Fatou Moore PA-C) Smoking Status: Never smoker additional social history: occasional ETOH, denies street drugs Social History Smoking Status: Never smoker additional social history: occasional ETOH, denies street drugs Exam Narrative Exam Narrative: GENERAL: A 48-year-old female appears stated age, tearful, holding an emesis bag and obviously in pain HEAD: Atraumatic. Normocephalic. No temporal or scalp tenderness. EYES: Pupils equal round and reactive. Extraocular motions intact. No scleral i cterus. No injection or drainage. ENT: Nose without bleeding, purulent drainage or septal hematoma. Throat without erythema, tonsillar hypertrophy or exudate. Uvula midline. Airway patent. NECK: Trachea midline. No JVD or lymphadenopathy. Supple, nontender, no meningeal signs. CARDIOVASCULAR: Regular rate and rhythm without murmurs, gallops, or rubs. RESPIRATORY: Clear to auscultation. Breath sounds equal bilaterally. No wheezes, rales, or rhonchi. GASTROINTESTINAL: Abdomen soft, tender in the suprapubic region nondistended. No hepato-splenomegaly, or palpable masses. No guarding. No evidence of surgical wound dehiscence, hematoma or seroma EXTREMITIES: No clubbing, cyanosis, or edema. No joint tenderness, effusion, or edema noted. BACK: Nontender without deformity or crepitance. No flank tenderness. NEURO: AOx3. SKIN: No rash or erythema. Initial Vital Signs Initial Vital Signs: Vital Signs Temperature 97.5 F L 04/28/19 20:25 Pulse Rate 105 H 04/28/19 20:25 Respiratory Rate 19 04/28/19 20:25 Pulse Oximetry 97 04/28/19 20:25 Course Orders Ordered: ED Orders 04/28/19 20:45 CT abdomen pelvis w con Stat 04/28/19 20:55 Complete Blood Count AUTO DIFF Stat Comprehensive Metabolic Panel Stat Lipase Stat 04/28/19 23:07 Urine Microscopic Stat Discontinued Medications Diphenhydramine HCl (Benadryl) 25 mg IV NOW ONE Stop: 04/28/19 20:56 Last Admin: 04/28/19 21:12 Dose: 25 mg Hydromorphone HCl (Dilaudid) 1 mg IV Q15M PRN PRN Reason: Pain, Severe (7-10) Last Admin: 04/28/19 21:08 Dose: 1 mg Hydromorphone HCl (Dilaudid) 0.5 mg IV NOW ONE Stop: 04/29/19 00:25 Last Admin: 04/29/19 00:36 Dose: 0.5 mg Sodium Chloride (Normal Saline 0.9%) 1,000 mls @ 1,000 mls/hr IV BOLUS ONE Stop: 04/28/19 21:42 Last Infusion: 04/28/19 22:34 Dose: 0 mls/hr Infusion: 04/28/19 22:04 Dose: 999 mls/hr Infusion: 04/28/19 21:26 Dose: 0 mls/hr Admin: 04/28/19 21:07 Dose: 1,000 mls/hr Methylprednisolone (Solu-Medrol 125 Mg Vial) 125 mg IV NOW ONE Stop: 04/28/19 20:56 Last Admin: 04/28/19 21:12 Dose: 125 mg Ondansetron HCl (Zofran) 4 mg IV NOW ONE Stop: 04/28/19 20:44 Last Admin: 04/28/19 21:08 Dose: 4 mg Ondansetron HCl (Zofran Odt Prepack) 1 bottle MISC SEEINSTR ONE Stop: 04/29/19 00:25 Last Admin: 04/29/19 00:35 Dose: 1 bottle Oxycodone/Acetaminophen (Endocet 5/325 Prepack) 1 bottle MISC SEEINSTR ONE Stop: 04/29/19 00:25 Last Admin: 04/29/19 00:35 Dose: 1 bottle Pantoprazole Sodium (Protonix) 40 mg IV NOW ONE Stop: 04/28/19 20:44 Last Admin: 04/28/19 21:08 Dose: 40 mg Consultations Consultation #1: call to Dr. Ryan (Gen Surgery) to discuss CT findings and H/P. He suggests that CT is very reassuring, but recommends conversation with fruit bar maker at [facility] Consultation #2: call to Dr. Hill at [facility] (fruit bar maker) whom after discussion of H/P, labs, and imaging states the findings are reassuring, and most likely due to a non surgically related enteritis, but she is happy to see patient in the clinic on wednesday Vital Signs - 8 hr 04/28/19 20:25 04/28/19 21:23 04/28/19 22:30 Temperature 97.5 F L Pulse Rate 105 H 83 78 Respiratory Rate 19 15 13 Blood Pressure [Right Arm] 112/70 114/73 Pulse Oximetry 97 95 99 04/28/19 22:33 Temperature Pulse Rate 77 Respiratory Rate 12 Blood Pressure [Right Arm] 118/66 Pulse Oximetry 99 MDM - Abdominal Pain Lab Data Result diagrams: 04/28/19 20:55 04/28/19 20:55 Lab Results 04/28/19 04/28/19 04/28/19 Range/Units 20:55 20:55 23:07 WBC 16.0 H (4.5-11.0) X10^3/uL RBC 5.47 H (4.0-5.2) X10^6/uL Hgb 16.7 H (12.0-16.0) g/dL Hct 49.5 H (36-46) % MCV 90.4 (80-100) fL MCH 30.5 (26-34) PG MCHC 33.8 (30-36) % RDW 13.3 (11.6-14.8) % Plt Count 396 (150-400) X10^3/uL Neut % (Auto) 85.0 H (50-75) % Lymph % (Auto) 9.3 L (25-40) % [place] % (Auto) 3.8 (3-14) % Eos % (Auto) 1.6 L (2-4) % Baso % (Auto) 0.3 (0-2) % Neut # (Auto) 93281 H (6682-7938) /uL Lymph # (Auto) 1500 (6763-3370) /uL [place] # (Auto) 600 (0-900) /uL Eos # (Auto) 300 (0-450) /uL Baso # (Auto) 0 (0-100) /uL RBC Morphology Normal morphology Sodium 142 (137-145) mmol/L Potassium 4.6 (3.4-5.1) mmol/L Chloride 105 (98-107) mmol/L Carbon Dioxide 23 (22-32) mmol/L BUN 15 (7-17) mg/dL Creatinine 0.70 (0.52-1.04) mg/dL Estimated GFR > 60.0 (>60) mL/min BUN/Creatinine Ratio 21.4 (6-22) Glucose 146 H (70-100) mg/dL Calcium 10.4 H (8.4-10.2) mg/dL Total Bilirubin 0.8 (0.2-1.3) mg/dL AST 25 (14-36) IU/L ALT 11 (9-52) IU/L Alkaline Phosphatase 106 (38-126) U/L Total Protein 9.5 H (6.3-8.2) g/dL Albumin 5.2 H (3.5-5.0) g/dL Globulin 4.3 H (1.7-4.1) g/dL Albumin/Globulin Ratio 1.2 (1.0-2.8) Lipase 131 (23-300) U/L Urine RBC None seen (0-5/HPF) Urine WBC None seen (0-5/HPF) Urine Bacteria None seen (None) Ur Culture Indicated? Cult not indicated Micro UA Comment Microscopic normal Point of care testing: Urine Dip Bedside Urine Glucose Negative Bedside Urine Bilirubin - Negative Bedside Urine Ketone - Negative Urine Specific [place] 1.010 Bedside Urine Occult Blood - Negative Bedside Urine pH 5.5 Bedside Urine Protein - Negative Bedside Urine Urobilinogen - Negative Bedside Urine Nitrite - Negative Bedside Urine Leukocytes + 70 Esterase MDM Narrative Medical decision making narrative: 48F with N/V/D and severe abdominal pain 3 weeks after hysterectomy. She had returned to her baseline and labs/imaging would suggest no post surgical emergency is present. She's been exposed to family with similar N/V/D symptoms. She was in the ED for many hours and unable to produce a stool sample. Elevated WBC is noted, but no other signs to suggest sepsis. Patient notes improvement after the above stated therapies. C Diff consi dered, but thought less likely given no BM in the ED. UA notes some leuks, but patient has no dysuria, frequency, or urgency. Will await culture results given possibility of ABX associated diarrhea. Discussions with Gen Surg/ hide handler and close follow up with return precautions are the overwhelming recommendation. Patient and given return precautions and understand these based on ability to verbalize them back to me. Questions answered to their apparent satisfaction. Discharge Plan Departure Patient Disposition: Home Clinical Impression: Enteritis Abdominal pain Qualifiers: Abdominal location: generalized Qualified Code(s): R10.84 - Generalized abdominal pain Discharge Date/Time: 04/29/19 00:57 Interventions: ED Discharge Assessment Last Done: 04/29/19 00:54 Instructions: DI for Abdominal Pain-Adult Activity Restrictions/Additional Instructions: *You have been diagnosed with [generalized abdominal pain, nausea, vomiting and diarrhea] *What to do: *Take medications as directed *Follow up with your primary care provider in 2-3 days, call for an appointment. Let them know you were seen in the Emergency Department and that we ask that you be seen in follow up *Return to ER if you should have any new, worsening or concerning symptoms 1. Drink plenty of fluids with frequent small sips. 2. For the next 24 hours a clear liquid diet is advised. After that please employ a brat diet which would include bananas, rice, apples, toast. 3. Please take medications as directed. 4. Please follow-up with your doctor in the next 1-2 days. Call the office for an appointment. 5. Please return to the emergency Department for any worsening or persistent symptoms, such as increasing pain or fever. Prescriptions: New ondansetron 4 mg tablet,disintegrating 4 mg PO TID-QID PRN (Reason: nausea and vomiting) Qty: 10 RF: 0 oxycodone 5 mg tablet 5 mg PO Q4-6H PRN (Reason: pain) Qty: 20 RF: 0 No Action tramadol 50 MG tablet 50 mg PO Q6HP PRNQty: 20 RF: 0 azithromycin 1 GM packet 1 gm PO QDAY 1 Days Qty: 0 RF: 0 meloxicam 7.5 mg tablet 15 mg PO DAILY Qty: 30 RF: 0 Referrals: Kalee Wright MD [Primary Care Provider] -
[2019-04-28 23:10] LABS: Bacteria Urine None Seen; RBC Urine None Seen (0-5/HPF); WBC Urine None Seen (0-5/HPF)
[2019-04-28 23:16] LABS: Culture Indicated Urine Cult Not Indicated; Urine Comments Microscopic Normal
[2019-04-29] MEDS: OXYCODONE/APAP 5/325 PREPACK 1 BOTTLE MISC (00:35)
[2019-04-29] MEDS: ONDANSETRON 4 MG ODT PREPACK 1 BOTTLE MISC (00:35)
[2019-04-29] MEDS: HYDROMORPHONE 0.5 MG INJ IV (00:36)
== END 2019-04-29 00:57 | disposition home or self-care (01) ==
PROVIDERS: Emergency Provider Emergency Medicine; PCP Family Medicine
DX: K52.9 Noninfective gastroenteritis and colitis, unspecified (principal); R10.84 Generalized abdominal pain
CPT/HCPCS: 36591; 74177; 80053; 81003; 81015; 83690; 85025; 96361; 96374; 96375; 96376; 99284; C9113; J1170; J1200; J2405; J2930; Q9967